=== PATIENT | female | born 1965 | race Caucasian/White ===

== ENCOUNTER 2017-01-29 08:00 | Outpatient (CLI) | payer MEDICAID | END 2017-01-29 08:01 | disposition home or self-care (01) | DX: N39.0 Urinary tract infection, site not specified (principal) ==

== ENCOUNTER 2017-01-29 10:27 | Outpatient (CLI) | payer MEDICAID | END 2017-01-29 10:28 | disposition home or self-care (01) | DX: Z71.9 Counseling, unspecified (principal); N39.0 Urinary tract infection, site not specified ==

== ENCOUNTER 2017-04-20 17:24 | Outpatient (CLI) | payer MEDICAID ==
--- NOTE | 2017-04-21 09:58 | XRAY Report ---
FIVE VIEW LUMBAR SPINE: 04/20/2017 CLINICAL INDICATION: Chronic back pain. FINDINGS: AP, lateral, oblique, and coned down views of the lumbar spine demonstrate moderate degene rative disk and facet disease. There is minimal degenerative anterolisthesis of L3 on L4 by approxima tely 3 mm. No compression fracture is present. No significant scoliosis is noted. IMPRESSION: MODERATE DEGENERATIVE CHANGES. NO EVIDENCE OF FRACTURE. JOB #: [id number] EXT JOB #:[id number]
== END 2017-04-20 17:25 | disposition home or self-care (01) ==
LOC: DI 17:24
PROVIDERS: ATTEND Family Medicine
DX: M47.9 Spondylosis, unspecified (principal); M51.36 Other intervertebral disc degeneration, lumbar region
CPT/HCPCS: 72110

== ENCOUNTER 2017-08-10 15:58 | Emergency (ER) | payer MEDICAID ==
[2017-08-10 16:26] VITALS: BP 156/98
--- NOTE | 2017-08-10 16:30 | ED Physician Documentation ---
PD HPI FEMALE - Stated complaint Stated Complaint: POSS UTI - Chief complaint Chief Complaint: UTI - History obtained from History obtained from: Patient - History of Present Illness Timing - onset: How many weeks ago (1) Timing - duration: Weeks (1) Timing - details: Gradual onset, Still present, Waxing and waning Associated symptoms: Dysuria, Urinary frequency Similar symptoms before: Diagnosis (UTI) Recently seen: Not recently seen - Additional information Additional information: 52-year-old female with chronic UTI and UTIs has developed symptoms about 1 week ago and she was treating this with Azo cranberry tablets and excessive water and her symptoms have progressively gotten worse. She has had some shaking chills over the weekend but she has not had nausea vomiting or flank pain. Review of Systems Constitutional: reports: Chills, Myalgias Eyes: denies: Decreased vision Ears: denies: Ear pain Nose: denies: Congestion Throat: denies: Sore throat Cardiac: denies: Chest pain / pressure, Palpitations Respiratory: denies: Dyspnea, Cough GI: denies: Abdominal Pain, Nausea, Vomiting : reports: Dysuria, Frequency PD PAST MEDICAL HISTORY - Past Medical History Respiratory: Asthma : Other Musculoskeletal: Osteoarthritis, Chronic back pain - Past Surgical History Past Surgical History: Yes Ortho: Knee replacement - Present Medications Home Medications: Ambulatory Orders Medication Instructions Recorded Confirmed Albuterol [Proventil Hfa] 2 puffs INH BID 06/07/13 08/10/17 Omeprazole [Prilosec] 20 mg PO BID 06/07/13 08/10/17 Cephalexin [Keflex] 500 mg PO QID #28 capsule 08/10/17 - Allergies Allergies/Adverse Reactions: Allergies Allergy/AdvReac Type Severity Reaction Status Date / Time diphenhydramine HCl * Allergy Intermediate Pain Verified 08/16/15 17:39 [From Benadryl] Penicillins Allergy seizure Verified 02/22/16 22:16 Sulfa (Sulfonamide Allergy severe Verified 02/22/16 22:16 Antibiotics) disrrhea tramadol HCl * [From Ultram] Allergy unknown Verified 08/16/15 17:39 dexamethasone AdvReac Severe Edema Verified 08/16/15 17:39 acetaminophen [From Percocet] AdvReac Intermediate Nausea Verified 08/16/15 17: 39 oxycodone HCl * AdvReac Intermediate Nausea Verified 08/16/15 17:39 [From Percocet] erythromycin base AdvReac severe Verified 02/22/16 22:19 body pain fluticasone propionate * AdvReac Nausea Verified 08/16/15 17:39 [From Flonase] Most antibiotics Allergy Intermediate varies Uncoded 08/16/15 17:39 Gabepentin AdvReac Dizziness Uncoded 08/16/15 17:39 - Social History Does the pt smoke?: Yes Smoking Status: Current every day smoker Does the pt drink ETOH?: No Does the pt have substance abuse?: No - Immunizations Immunizations are current?: Yes - POLST Patient has POLST: No PD ED PE NORMAL - Vitals Vital signs reviewed: Yes (hypertensive) - General General: No acute distress, Well developed/nourished - HEENT HEENT: Atraumatic, PERRL, EOMI - Neck Neck: Supple, no meningeal sign - Cardiac Cardiac: RRR, No murmur - Respiratory Respiratory: No respiratory distress, Clear bilaterally - Abdomen Abdomen: Soft, Non tender - Back Back: No CVA TTP - Derm Derm: Normal color, Warm and dry, No rash - Extremities Extremities: No deformity, No edema - Neuro Neuro: Alert and oriented X 3, No motor deficit, No sensory deficit, Normal speech Eye Opening: Spontaneous Motor: Obeys Commands Verbal: Oriented GCS Score: 15 - Psych Psych: Normal mood, Normal affect Results - Vitals Vitals: Vital Signs - 24 hr 08/10/17 16:20 Temperature 36.7 C Heart Rate 88 Respiratory 18 Rate Blood Pressure 156/98 H O2 Saturation 98 Oxygen O2 Source Room air - Labs Labs: Laboratory Tests 08/10/17 17:30 Urine Color YELLOW Urine Clarity CLOUDY Urine pH 6.0 Ur Specific [place] 1.020 Urine Protein NEGATIVE Urine Glucose (UA) NEGATIVE Urine Ketones NEGATIVE Urine Occult Blood TRACE-INTA Urine Nitrite POSITIVE H Urine Bilirubin NEGATIVE Urine Urobilinogen 0.2 (NORMAL) Ur Leukocyte Esterase NEGATIVE Urine RBC 0-5 Urine WBC 11-25 H Ur Squamous Epith Cells FEW Squamous Urine Bacteria Many H Urine Casts 6-10 Hyaline Casts Ur Microscopic Review INDICATED Urine Culture Comments INDICATED PD MEDICAL DECISION MAKING - ED course Complexity details: reviewed results, re-evaluated patient, considered differential, d/w patient, d/w family ED course: UTI recurrent will treat with keflex Departure - Departure Disposition: 01 Home, Self Care Clinical Impression: Urinary tract infection Qualifiers: Urinary tract infection type: acute cystitis Hematuria presence: without hematuria Qualified Code(s): N30.00 - Acute cystitis without hematuria Instructions: ED UTI Cystitis Female Follow-Up: Rossy Zapata PA-C [Primary Care Provider] - Prescriptions: Cephalexin [Keflex] 500 mg PO QID #28 capsule Discharge Date/Time: 08/10/17 18:43
[2017-08-10 18:14] LABS: BILIRUBIN,URINE NEGATIVE (NEGATIVE)
[2017-08-10 18:16] LABS: UA w/ MICROSCOPIC CHARGE YES
[2017-08-10 18:25] LABS: UR CULTURE IF IND INDICATED
== END 2017-08-10 18:43 | disposition home or self-care (01) ==
LOC: ED 15:58
DX: N30.00 Acute cystitis without hematuria (principal); Z87.440 Personal history of urinary (tract) infections; J45.909 Unspecified asthma, uncomplicated; M19.90 Unspecified osteoarthritis, unspecified site; F17.200 Nicotine dependence, unspecified, uncomplicated
CPT/HCPCS: 81001; 81003; 87086; 99283

== ENCOUNTER 2017-10-05 20:01 | Emergency (ER) | payer MEDICAID ==
[2017-10-05 20:15] VITALS: BP 137/82
[2017-10-05 20:31] LABS: BILIRUBIN,URINE NEGATIVE (NEGATIVE); GLUCOSE, URINE (UA) NEGATIVE (NEGATIVE); KETONES,URINE (UA) NEGATIVE (NEGATIVE); LEUKOCYTE ESTERASE, URINE NEGATIVE (NEGATIVE); NITRITE,URINE NEGATIVE (NEGATIVE); OCCULT BLOOD,URINE NEGATIVE (NEGATIVE); PROTEIN,URINE NEGATIVE (NEGATIVE); UROBILINOGEN,URINE 0.2 (NORMAL) E.U./dL (NORMAL)
[2017-10-05 20:34] LABS: CLARITY,URINE CLEAR (CLEAR)
[2017-10-05] MEDS ORDERED: NITROFURANTOIN MACRO 100 MG CAPSULE PO STA (20:47)
--- NOTE | 2017-10-05 20:48 | ED Physician Documentation ---
PD HPI FEMALE - Stated complaint Stated Complaint: FEMALE - Chief complaint Chief Complaint: UTI - History obtained from History obtained from: Patient - History of Present Illness Timing - onset: Other (She has frequent UTIs and developed urinary frequency burning and dysuria for the last 3 weeks without flank pain, nausea, or fevers. Her urine is cloudy during the day. She drank a whole bunch of water on the way here so it is better now.) Review of Systems Constitutional: denies: Fever, Chills GI: denies: Abdominal Pain, Nausea, Vomiting : reports: Dysuria, Frequency PD PAST MEDICAL HISTORY - Past Medical History Respiratory: Asthma : Other Musculoskeletal: Osteoarthritis, Chronic back pain - Past Surgical History Past Surgical History: Yes Ortho: Knee replacement - Present Medications Home Medications: Ambulatory Orders Medication Instructions Recorded Confirmed Albuterol [Proventil Hfa] 2 puffs INH BID 06/07/13 08/10/17 Omeprazole [Prilosec] 20 mg PO BID 06/07/13 08/10/17 Cephalexin [Keflex] 500 mg PO QID #28 capsule 08/10/17 Cephalexin [Keflex] 500 mg PO QID #20 capsule 10/05/17 - Allergies Allergies/Adverse Reactions: Allergies Allergy/AdvReac Type Severity Reaction Status Date / Time diphenhydramine HCl * Allergy Intermediate Pain Verified 08/16/15 17:39 [From Benadryl] Penicillins Allergy seizure Verified 02/22/16 22:16 Sulfa (Sulfonamide Allergy severe Verified 02/22/16 22:16 Antibiotics) disrrhea tramadol HCl * [From Ultram] Allergy unknown Verified 08/16/15 17:39 dexamethasone AdvReac Severe Edema Verified 08/16/15 17:39 acetaminophen [From Percocet] AdvReac Intermediate Nausea Verified 08/16/15 17: 39 oxycodone HCl * AdvReac Intermediate Nausea Verified 08/16/15 17:39 [From Percocet] erythromycin base AdvReac severe Verified 02/22/16 22:19 body pain fluticasone propionate * AdvReac Nausea Verified 08/16/15 17:39 [From Flonase] Most antibiotics Allergy Intermediate varies Uncoded 08/16/15 17:39 Gabepentin AdvReac Dizziness Uncoded 08/16/15 17:39 - Social History Does the pt smoke?: Yes Smoking Status: Current every day smoker Does the pt drink ETOH?: No Does the pt have substance abuse?: No - Immunizations Immunizations are current?: Yes - POLST Patient has POLST: No PD ED PE NORMAL - Vitals Vital signs reviewed: Yes - General General: Alert and oriented X 3, No acute distress - Abdomen Abdomen: Soft, Non tender, Non distended - Back Back: No CVA TTP - Neuro Neuro: Alert and oriented X 3, Normal speech Results - Vitals Vitals: Vital Signs - 24 hr 10/05/17 20:10 Temperature 36.6 C Heart Rate 85 Respiratory 18 Rate Blood Pressure 137/82 H O2 Saturation 100 Oxygen O2 Source Room air - Labs Labs: Laboratory Tests 10/05/17 20:20 Urine Color YELLOW Urine Clarity CLEAR Urine pH 6.0 Ur Specific [place] 1.025 Urine Protein NEGATIVE Urine Glucose (UA) NEGATIVE Urine Ketones NEGATIVE Urine Occult Blood NEGATIVE Urine Nitrite NEGATIVE Urine Bilirubin NEGATIVE Urine Urobilinogen 0.2 (NORMAL) Ur Leukocyte Esterase NEGATIVE Ur Microscopic Review NOT INDICATED Urine Culture Comments NOT INDICATED PD MEDICAL DECISION MAKING - ED course ED course: Urine is negative but her symptoms are compelling and she drank a lot of water on the way here which may have diluted out any positive findings. Departure - Departure Disposition: 01 Home, Self Care Clinical Impression: Cystitis Condition: Good Record reviewed to determine appropriate education?: Yes Instructions: ED UTI Cystitis Female Prescriptions: Cephalexin [Keflex] 500 mg PO QID #20 capsule Comments: Call your doctor to arrange a follow-up appointment, make the next available appointment. In the interim, return anytime if worse or if new symptoms develop. Your blood pressure was elevated today on check into the emergency department. This does not mean that you have hypertension, it is a common phenomenon to come to the emergency department and have elevated blood pressure. I recommend that you see your primary care physician within the week to have it rechecked when you are feeling better. Discharge Date/Time: 10/05/17 21:02
[2017-10-05] MEDS ORDERED: cephALEXin 250 MG CAPSULE PO STA (20:56)
== END 2017-10-05 21:02 | disposition home or self-care (01) ==
LOC: ED 20:01
DX: N30.90 Cystitis, unspecified without hematuria (principal); R03.0 Elevated blood-pressure reading, without diagnosis of hypertension; F17.200 Nicotine dependence, unspecified, uncomplicated; Z96.659 Presence of unspecified artificial knee joint
CPT/HCPCS: 81003; 99283; A9270; 81001; 87086

== ENCOUNTER 2018-11-02 14:39 | Outpatient (CLI) | payer MEDICAID ==
--- NOTE | 2018-11-02 15:45 | XRAY Report ---
Reason: BRONCHITIS Procedure Date: 11/02/2018 Accession Number: [id number] / [id number] Procedure: WCP - Chest 2 View X-Ray CPT Code: 70365 FULL RESULT: EXAM: CHEST RADIOGRAPHY EXAM DATE: 11/02/2018 02:51 PM. CLINICAL HISTORY: Bronchitis. COMPARISON: 07/30/2015 10:55 AM. TECHNIQUE: 2 views. FINDINGS: Lungs/Pleura: No focal opacities evident. No pleural effusion. No pneumothorax. Normal volumes. Mediastinum: Heart and mediastinal contours are unremarkable. Other: None. IMPRESSION: Normal 2-view chest radiography. [facility]
== END 2018-11-02 14:40 | disposition home or self-care (01) ==
LOC: DI.WCP 14:39
PROVIDERS: ATTEND Family Medicine
DX: J40 Bronchitis, not specified as acute or chronic (principal)
CPT/HCPCS: 71046

== ENCOUNTER 2018-11-29 12:30 | Outpatient (CLI) | payer MEDICAID | END 2018-11-29 23:59 | disposition home or self-care (01) | LOC: LAB.WCP 12:30 | PROVIDERS: ATTEND Physician Assistant Medical | DX: N39.0 Urinary tract infection, site not specified (principal) | CPT/HCPCS: 87086; 87491; 87591 ==

== ENCOUNTER 2019-03-16 14:21 | Emergency (ER) | payer MEDICAID ==
[2019-03-16 14:47] LABS: BILIRUBIN,URINE NEGATIVE (NEGATIVE); GLUCOSE, URINE (UA) NEGATIVE (NEGATIVE); KETONES,URINE (UA) NEGATIVE (NEGATIVE); LEUKOCYTE ESTERASE, URINE NEGATIVE (NEGATIVE); NITRITE,URINE NEGATIVE (NEGATIVE); OCCULT BLOOD,URINE NEGATIVE (NEGATIVE); PROTEIN,URINE NEGATIVE (NEGATIVE); UROBILINOGEN,URINE 0.2 (NORMAL) E.U./dL (NORMAL)
[2019-03-16 14:49] LABS: CLARITY,URINE CLEAR (CLEAR)
--- NOTE | 2019-03-16 14:49 | ED Physician Documentation ---
PD HPI FEMALE - Stated complaint Stated Complaint: FEMALE - Chief complaint Chief Complaint: UTI - History obtained from History obtained from: Patient - History of Present Illness Timing - onset: Other (5 days of chills, nausea slight dysuria. Fever to 101.5. Similar to prior episodes of somewhat frequent UTIs.) Review of Systems Constitutional: reports: Fever, Chills, Fatigue Nose: denies: Rhinorrhea / runny nose, Congestion Respiratory: denies: Cough GI: reports: Nausea. denies: Vomiting : reports: Dysuria PD PAST MEDICAL HISTORY - Past Medical History Respiratory: Asthma : Other Musculoskeletal: Osteoarthritis, Chronic back pain - Past Surgical History Past Surgical History: Yes Ortho: Knee replacement - Present Medications Home Medications: Ambulatory Orders Medication Instructions Recorded Confirmed Albuterol [Proventil Hfa] 2 puffs INH BID 06/07/13 08/10/17 Omeprazole [Prilosec] 20 mg PO BID 06/07/13 08/10/17 Cephalexin [Keflex] 500 mg PO QID #28 capsule 08/10/17 Cephalexin [Keflex] 500 mg PO QID #20 capsule 10/05/17 - Allergies Allergies/Adverse Reactions: Allergies Allergy/AdvReac Type Severity Reaction Status Date / Time diphenhydramine HCl * Allergy Intermediate Pain Verified 08/16/15 17:39 [From Benadryl] Penicillins Allergy seizure Verified 02/22/16 22:16 Sulfa (Sulfonamide Allergy severe Verified 02/22/16 22:16 Antibiotics) disrrhea tramadol HCl * [From Ultram] Allergy unknown Verified 08/16/15 17:39 dexamethasone AdvReac Severe Edema Verified 08/16/15 17:39 acetaminophen [From Percocet] AdvReac Intermediate Nausea Verified 08/16/15 17:39 oxycodone HCl * AdvReac Intermediate Nausea Verified 08/16/15 17:39 [From Percocet] erythromycin base AdvReac severe Verified 02/22/16 22:19 body pain fluticasone propionate * AdvReac Nausea Verified 08/16/15 17:39 [From Flonase] Most antibiotics Allergy Intermediate varies Uncoded 08/16/15 17:39 Gabepentin AdvReac Dizziness Uncoded 08/16/15 17:39 - Social History Does the pt smoke?: Yes Smoking Status: Current every day smoker Does the pt drink ETOH?: No Does the pt have substance abuse?: No - Immunizations Immunizations are current?: Yes - POLST Patient has POLST: No PD ED PE NORMAL - Vitals Vital signs reviewed: Yes - General General: Alert and oriented X 3, No acute distress - Abdomen Abdomen: Normal bowel sounds, Soft, Non tender - Back Back: No CVA TTP - Derm Derm: No rash - Neuro Neuro: Alert and oriented X 3, Normal speech Results - Vitals Vitals: Vital Signs - 24 hr 03/16/19 14:43 Temperature 36.5 C Heart Rate 89 Respiratory 16 Rate Blood Pressure 142/92 H O2 Saturation 100 Oxygen O2 Source Room air - Labs Labs: Laboratory Tests 03/16/19 03/16/19 03/16/19 14:40 15:00 15:00 WBC 6.4 RBC 4.51 Hgb 14.2 Hct 43.2 MCV 95.8 MCH 31.5 H MCHC 32.9 RDW 12.5 Plt Count 205 MPV 9.1 Neut # (Auto) 3.5 Lymph # (Auto) 2.3 [place] # (Auto) 0.5 Eos # (Auto) 0.1 Baso # (Auto) 0.0 Absolute Nucleated RBC 0.00 Nucleated RBC % 0.0 Sodium 142 Potassium 3.4 L Chloride 105 Carbon Dioxide 26 Anion Gap 11.0 BUN 17 Creatinine 0.7 Estimated GFR (MDRD) 87 L Glucose 94 Calcium 9.4 Total Bilirubin 0.5 AST 19 ALT 13 Alkaline Phosphatase 63 Total Protein 7.1 Albumin 4.2 Globulin 2.9 Albumin/Globulin Ratio 1.4 Lipase 34 Urine Color YELLOW Urine Clarity CLEAR Urine pH 6.0 Ur Specific [place] <=1.005 Urine Protein NEGATIVE Urine Glucose (UA) NEGATIVE Urine Ketones NEGATIVE Urine Occult Blood NEGATIVE Urine Nitrite NEGATIVE Urine Bilirubin NEGATIVE Urine Urobilinogen 0.2 (NORMAL) Ur Leukocyte Esterase NEGATIVE Ur Microscopic Review NOT INDICATED Urine Culture Comments NOT INDICATED PD MEDICAL DECISION MAKING - ED course ED course: 53-year-old woman with frequent UTIs presents with symptoms that she thinks are consistent with same, however her urinalysis, thorough review of systems and lab work demonstrates no other cause for the findings and conservative care and primary care follow-up was advised. Departure - Departure Disposition: 01 Home, Self Care Clinical Impression: Nausea and vomiting Qualifiers: Vomiting type: unspecified Vomiting Intractability: non-intractable Qualified Code(s): R11.2 - Nausea with vomiting, unspecified Condition: Good Health Concerns: nausea, body aches, possible uti Plan of Treatment: Urine done and normal, will culture, labs unremarkable. Care Goals: Rule out UTI Assessment: as above Instructions: ED Nausea Vomiting Comments: We will culture your urine, the results should be done in 48-72 hours. If an antibiotic is necessary we will call you. Return if worse in the meantime, especially if you develop increasing flank pain, fevers, or other new concerns.
[2019-03-16 15:08] LABS: BASOPHILS % (AUTO) 0.5 %; EOSINOPHILS # (AUTO) 0.1 10^3/uL (0.0-0.7); EOSINOPHILS % (AUTO) 1.6 %; HGB - HEMOGLOBIN 14.2 g/dL (12.0-16.0); LYMPHOCYTES # (AUTO) 2.3 10^3/uL (1.5-3.5); LYMPHOCYTES % (AUTO) 35.2 %; MEAN CORPUSCULAR HEMOGLOBIN 31.5 pg (27.0-31.0); MEAN CORPUSCULAR HGB CONC 32.9 g/dL (32.0-36.0); MEAN CORPUSCULAR VOLUME 95.8 fL (81.0-99.0); MEAN PLATELET VOLUME 9.1 fL (7.9-10.8); MONOCYTES # (AUTO) 0.5 10^3/uL (0.0-1.0); MONOCYTES % (AUTO) 8.1 %; NEUTROPHILS # (AUTO) 3.5 10^3/uL (1.5-6.6); NEUTROPHILS % (AUTO) 54.3 %; PLT - PLATELET COUNT 205 10^3/uL (130-450); RED BLOOD COUNT 4.51 10^6/uL (4.20-5.40); RED CELL DISTRIBUTION WIDTH 12.5 % (12.0-15.0); WHITE BLOOD COUNT 6.4 x10^3/uL (4.8-10.8)
[2019-03-16 15:23] LABS: ALBUMIN 4.2 g/dL (3.2-5.5); ALBUMIN/GLOBULIN RATIO 1.4 (1.0-2.2); BILIRUBIN,TOTAL 0.5 mg/dL (0.2-1.0); CALCIUM 9.4 mg/dL (8.5-10.3); CREATININE 0.7 mg/dL (0.4-1.0); TOTAL PROTEIN 7.1 g/dL (6.7-8.2)
[2019-03-16 16:00] VITALS: BP 125/78
== END 2019-03-16 15:42 | disposition home or self-care (01) ==
LOC: ED 14:21
DX: R11.2 Nausea with vomiting, unspecified (principal); F17.200 Nicotine dependence, unspecified, uncomplicated
CPT/HCPCS: 36415; 80053; 81001; 81003; 83690; 85025; 87086; 99282

== ENCOUNTER 2019-05-25 16:47 | Emergency (ER) | payer MEDICAID ==
[2019-05-25 16:53] VITALS: BP 141/87
[2019-05-25] MEDS ORDERED: HYDROcod/ACETAM 5/325 MG TABLET PO STA (17:03)
[2019-05-25] MEDS ORDERED: ONDANSETRON ODT 4 MG TABLET TL STA (17:03)
--- NOTE | 2019-05-25 17:06 | ED Physician Documentation ---
PD HPI BACK PAIN - Stated complaint Stated Complaint: BACK PX - Chief complaint Chief Complaint: Back Pain - History obtained from History obtained from: Patient - History of Present Illness Timing - onset: Today (She developed severe low back pain on the right side over today. She has not taken anything at home for. She is not nauseous. There is a dull ache that is severe and then spasms that are even worse. She has a lidocaine patch on which is not too helpful. No fevers or chills.) Review of Systems Constitutional: reports: Reviewed and negative Cardiac: denies: Chest pain / pressure, Palpitations Respiratory: denies: Dyspnea, Cough GI: denies: Abdominal Pain, Nausea, Vomiting, Diarrhea PD PAST MEDICAL HISTORY - Past Medical History Respiratory: Asthma : Other Musculoskeletal: Osteoarthritis, Chronic back pain - Past Surgical History Past Surgical History: Yes Ortho: Knee replacement - Present Medications Home Medications: Ambulatory Orders Medication Instructions Recorded Confirmed Albuterol [Proventil Hfa] 2 puffs INH BID 06/07/13 08/10/17 Omeprazole [Prilosec] 20 mg PO BID 06/07/13 08/10/17 Cephalexin [Keflex] 500 mg PO QID #28 capsule 08/10/17 Cephalexin [Keflex] 500 mg PO QID #20 capsule 10/05/17 Hydrocodone/Acetaminophen 1 - 2 each PO Q6H PRN #14 tablet 05/25/19 [Hydrocodon-Acetaminophen 5-325] Lidocaine Patch 5% [Lidoderm Patch] 1 patch TOP DAILY PRN #10 patch 05/25/19 Ondansetron Odt [Zofran] 4 mg TL Q6H PRN #20 tablet 05/25/19 RX: Valacyclovir HCl [Valtrex] 1,000 mg PO TID #30 tablet 05/25/19 RX: predniSONE [Deltasone] 20 mg PO [id number] #21 tab 05/25/19 - Allergies Allergies/Adverse Reactions: Allergies Allergy/AdvReac Type Severity Reaction Status Date / Time diphenhydramine HCl * Allergy Intermediate Pain Verified 08/16/15 17:39 [From Benadryl] Penicillins Allergy seizure Verified 02/22/16 22:16 Sulfa (Sulfonamide Allergy severe Verified 02/22/16 22:16 Antibiotics) disrrhea tramadol HCl * [From Ultram] Allergy unknown Verified 08/16/15 17:39 dexamethasone AdvReac Severe Edema Verified 08/16/15 17:39 acetaminophen [From Percocet] AdvReac Intermediate Nausea Verified 08/16/15 17:39 oxycodone HCl * AdvReac Intermediate Nausea Verified 08/16/15 17:39 [From Percocet] erythromycin base AdvReac severe Verified 02/22/16 22:19 body pain fluticasone propionate * AdvReac Nausea Verified 08/16/15 17:39 [From Flonase] Most antibiotics Allergy Intermediate varies Uncoded 08/16/15 17:39 Gabepentin AdvReac Dizziness Uncoded 08/16/15 17:39 - Social History Does the pt smoke?: Yes Smoking Status: Current every day smoker Does the pt drink ETOH?: No Does the pt have substance abuse?: No - Immunizations Immunizations are current?: Yes - POLST Patient has POLST: No PD ED PE NORMAL - Vitals Vital signs reviewed: Yes - General General: Alert and oriented X 3, Other (She appears uncomfortable) - Abdomen Abdomen: Soft, Non tender - Back Back: No CVA TTP, Other (On initial evaluation of her back she has a lidocaine patch in place. Under the lidocaine patch there is some diffuse redness from the tape she says, there is an area on the right flank that is more vesicular and looking like early shingles, she feels like that is from the tape as opposed to shingles on initial evaluation.) - Derm Derm: Normal color, Warm and dry - Extremities Extremities: No edema, No calf tenderness / cord - Neuro Neuro: Alert and oriented X 3, Normal speech Results - Vitals Vitals: Vital Signs - 24 hr 05/25/19 16:51 Temperature 36.3 C L Heart Rate 94 Respiratory 18 Rate Blood Pressure 141/87 H O2 Saturation 99 Oxygen O2 Source Room air - Labs Labs: Laboratory Tests 05/25/19 18:25 Urine Color YELLOW Urine Clarity CLEAR Urine pH 6.5 Ur Specific [place] <=1.005 Urine Protein NEGATIVE Urine Glucose (UA) NEGATIVE Urine Ketones NEGATIVE Urine Occult Blood NEGATIVE Urine Nitrite NEGATIVE Urine Bilirubin NEGATIVE Urine Urobilinogen 0.2 (NORMAL) Ur Leukocyte Esterase NEGATIVE Ur Microscopic Review NOT INDICATED Urine Culture Comments NOT INDICATED - Rads (name of study) CT KUB Radiology: EMP read contemporaneously (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 On initial examination I suspect she had shingles but she was red in the whole area from having a lidocaine patch on. That area was cleaned and on repeat evaluation, shingles was persistent explaining her pain. She has a lot of sensitivities to pain medications and as such she did not really want any narcotics. No gabapentin. Departure - Departure Disposition: Home, Self Care Clinical Impression: Herpes zoster Condition: Good Record reviewed to determine appropriate education?: Yes Instructions: ED Shingles Prescriptions: Hydrocodone/Acetaminophen [Hydrocodon-Acetaminophen 5-325] 1 - 2 each PO Q6H PRN #14 tablet PRN Reason: pain Lidocaine Patch 5% [Lidoderm Patch] 1 patch TOP DAILY PRN #10 patch PRN Reason: shingles pain Ondansetron Odt [Zofran] 4 mg TL Q6H PRN #20 tablet PRN Reason: Nausea / Vomiting RX: predniSONE [Deltasone] 20 mg PO [id number] #21 tab RX: Valacyclovir HCl [Valtrex] 1,000 mg PO TID #30 tablet Comments: You have shingles on your right mid low back. Return for new worsening symptoms. Follow-up with your doctor next week for recheck. Discharge Date/Time: 05/25/19 19:20
--- NOTE | 2019-05-25 17:53 | CT Report ---
Reason: R flank pain Procedure Date: 05/25/2019 Accession Number: [id number] / [id number] Procedure: CT - Abdomen/Pelvis WO CPT Code: FULL RESULT: EXAM: CT ABDOMEN AND PELVIS (CT KUB) EXAM DATE: 05/25/2019 05:28 PM. CLINICAL HISTORY: R flank pain. COMPARISONS: ABDOMEN/PELVIS W/O 05/10/2014 9:34 AM. TECHNIQUE: Routine axial helical CT imaging was performed through the abdomen and pelvis without IV contrast. Reconstructions: Coronal and sagittal. In accordance with CT protocol optimization, one or more of the following dose reduction techniques were utilized for this exam: automated exposure control, adjustment of mA and/or KV based on patient size, or use of iterative reconstructive technique. FINDINGS: Lung Bases: Unremarkable. Right Kidney/Ureter: No stones, hydronephrosis, or hydroureter. No perinephric fat stranding. Left Kidney/Ureter: No stones, hydronephrosis, or hydroureter. No perinephric fat stranding. Other Solid Organs: Noncontrast images of the solid organs are grossly unremarkable. Gallbladder/Bile Ducts: Unremarkable. Peritoneal Cavity: The stomach is mildly distended with food. Unopacified small bowel loops are nondistended. Normal sized appendix with mild luminal hyperdensity near the base without a distinct appendicolith. No periappendiceal fat stranding. Small amount of formed stool throughout the colon. No focal pericolonic fat stranding. No lymphadenopathy, ascites, or pneumoperitoneum. Pelvic Organs: Bladder unremarkable. No stones. Anteverted uterus normal in size. Ovaries are not enlarged. Vasculature: Unremarkable. Other: Moderate degenerative disk disease L4-L5 and L5-S1. Moderate bilateral L3-L4 facet osteoarthritis. Body wall unremarkable. IMPRESSION: No hydronephrosis or urolithiasis. No findings to explain right-sided pain. [facility]
[2019-05-25] MEDS ORDERED: valACYclovir 500 MG TABLET PO STA (18:29)
[2019-05-25] MEDS ORDERED: LIDOCAINE PATCH 5% TOP STA (18:29)
[2019-05-25] MEDS ORDERED: predniSONE 20 MG TABLET PO STA (18:29)
[2019-05-25 18:38] LABS: BILIRUBIN,URINE NEGATIVE (NEGATIVE); GLUCOSE, URINE (UA) NEGATIVE (NEGATIVE); KETONES,URINE (UA) NEGATIVE (NEGATIVE); LEUKOCYTE ESTERASE, URINE NEGATIVE (NEGATIVE); NITRITE,URINE NEGATIVE (NEGATIVE); OCCULT BLOOD,URINE NEGATIVE (NEGATIVE); PH,URINE 6.5 PH (5.0-7.5); PROTEIN,URINE NEGATIVE (NEGATIVE); UROBILINOGEN,URINE 0.2 (NORMAL) E.U./dL (NORMAL)
[2019-05-25 18:57] LABS: CLARITY,URINE CLEAR (CLEAR)
== END 2019-05-25 19:20 | disposition home or self-care (01) ==
LOC: ED 16:47
DX: B02.9 Zoster without complications (principal); M47.816 Spondylosis without myelopathy or radiculopathy, lumbar region; M51.36 Other intervertebral disc degeneration, lumbar region; F17.200 Nicotine dependence, unspecified, uncomplicated
CPT/HCPCS: 74176; 81003; 99284; A9270; J7512; Q0162; 81001; 87086

== ENCOUNTER 2019-05-27 15:39 | Emergency (ER) | payer MEDICAID ==
[2019-05-27 15:47] VITALS: BP 156/87
[2019-05-27] MEDS ORDERED: LIDOCAINE PATCH 5% TOP STA (15:58)
--- NOTE | 2019-05-27 16:03 | ED Physician Documentation ---
History of Present Illness - Stated complaint Stated Complaint: MED CHECK - Chief complaint Chief Complaint: General - History obtained from History obtained from: Patient - History of Present Illness Timing: How many days ago (3) Pain level max: 6 Pain level now: 5 Improved by: lidoderm Worsened by: palpation - Additonal information Additional information: states dx with shingles. Unable to fill lidocaine patches because of insurance issues. here requesting a lidocaine patch. no new issues. 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 : Other HEENT: None Psych: None Musculoskeletal: Osteoarthritis, Chronic back pain Derm: None - Past Surgical History Past Surgical History: Yes Ortho: Knee replacement - Present Medications Home Medications: Ambulatory Orders Medication Instructions Recorded Confirmed Albuterol [Proventil Hfa] 2 puffs INH BID 06/07/13 08/10/17 Omeprazole [Prilosec] 20 mg PO BID 06/07/13 08/10/17 Cephalexin [Keflex] 500 mg PO QID #28 capsule 08/10/17 Cephalexin [Keflex] 500 mg PO QID #20 capsule 10/05/17 Hydrocodone/Acetaminophen 1 - 2 each PO Q6H PRN #14 tablet 05/25/19 [Hydrocodon-Acetaminophen 5-325] Lidocaine Patch 5% [Lidoderm Patch] 1 patch TOP DAILY PRN #10 patch 05/25/19 Ondansetron Odt [Zofran] 4 mg TL Q6H PRN #20 tablet 05/25/19 Valacyclovir HCl [Valtrex] 1,000 mg PO TID #30 tablet 05/25/19 predniSONE [Deltasone] 20 mg PO [id number] #21 tab 05/25/19 Diclofenac Epolamine [Flector] 1 each TD BID PRN #20 adh..patch 05/27/19 - Allergies Allergies/Adverse Reactions: Allergies Allergy/AdvReac Type Severity Reaction Status Date / Time diphenhydramine HCl * Allergy Intermediate Pain Verified 05/27/19 15:47 [From Benadryl] bee venom protein (honey bee) Allergy Unknown Verified 05/27/19 15:47 ciprofloxacin [From Cipro] Allergy Rash Verified 05/27/19 15:47 clindamycin Allergy Unknown Verified 05/27/19 15:47 hydrocodone [From Vicodin] Allergy Unknown Verified 05/27/19 15:47 metronidazole Allergy Unknown Verified 05/27/19 15:47 nabumetone Allergy Rash Verified 05/27/19 15:47 Penicillins Allergy seizure Verified 05/27/19 15:47 prednisone Allergy Unknown Verified 05/27/19 15:47 Sulfa (Sulfonamide Allergy severe Verified 05/27/19 15:47 Antibiotics) disrrhea tramadol HCl * [From Ultram] Allergy unknown Verified 05/27/19 15:47 dexamethasone AdvReac Severe Edema Verified 05/27/19 15:47 acetaminophen [From Percocet] AdvReac Intermediate Nausea Verified 05/27/19 15:47 oxycodone HCl * AdvReac Intermediate Nausea Verified 05/27/19 15:47 [From Percocet] amitriptyline AdvReac fatigue Verified 05/27/19 15:47 erythromycin base AdvReac severe Verified 05/27/19 15:47 body pain esomeprazole [From Nexium] AdvReac Headache Verified 05/27/19 15:47 fluticasone propionate * AdvReac Nausea Verified 05/27/19 15:47 [From Flonase] Most antibiotics Allergy Intermediate varies Uncoded 05/27/19 15:47 Gabepentin AdvReac Dizziness Uncoded 05/27/19 15:47 - Social History Does the pt smoke?: Yes Smoking Status: Current every day smoker Does the pt drink ETOH?: No Does the pt have substance abuse?: No - Immunizations Immunizations are current?: Yes - POLST Patient has POLST: No PD ED PE NORMAL - Vitals Vital signs reviewed: Yes - General General: Alert and oriented X 3, No acute distress - HEENT HEENT: Moist mucous membranes - Back Back: Other (R flank small vesicular rash) - Derm Derm: Warm and dry - Neuro Neuro: Alert and oriented X 3 - Psych Psych: Normal mood, Normal affect Results - Vitals Vitals: Vital Signs - 24 hr 05/27/19 15:44 Temperature 36.7 C Heart Rate 93 Respiratory 20 Rate Blood Pressure 156/87 H O2 Saturation 98 Oxygen O2 Source Room air PD MEDICAL DECISION MAKING - ED course Complexity details: reviewed old records, considered differential, d/w patient ED course: Lidoderm patch applied. We will also try on Flector patches and see if this helps her symptoms. Pt will follow-up with her doctor for further care. Patient counseled regarding signs and symptoms for which I believe and urgent re-evaluation would be necessary. Patient with good understanding of and a greement to plan and is comfortable going home at this time This document was made in part using voice recognition software. While efforts are made to proofread this document, sound alike and grammatical errors may occur. Departure - Departure Disposition: 01 Home, Self Care Clinical Impression: Shingles Qualifiers: Herpes zoster complications: without complications Qualified Code(s): B02.9 - Zoster without complications Condition: Good Instructions: ED Shingles Follow-Up: Elaine Leung PA-C [Primary Care Provider] - Within 1 week Prescriptions: Diclofenac Epolamine [Flector] 1 each TD BID PRN #20 adh..patch PRN Reason: back pain Comments: Return if you worsen. Use the medications as prescribed. See if your insurance covers the flector patches and you can apply this to the area.
== END 2019-05-27 16:13 | disposition home or self-care (01) ==
LOC: ED 15:39
DX: B02.9 Zoster without complications (principal); F17.200 Nicotine dependence, unspecified, uncomplicated
CPT/HCPCS: 99282; 99283; A9270

== ENCOUNTER 2019-06-14 08:00 | Outpatient (CLI) | payer MEDICAID ==
[2019-06-14 18:52] LABS: CALCIUM 9.3 mg/dL (8.5-10.3); CREATININE 0.6 mg/dL (0.4-1.0)
== END 2019-06-14 08:01 | disposition home or self-care (01) ==
LOC: LAB.WCP 08:00
PROVIDERS: ATTEND Physician Assistant Medical
DX: R60.9 Edema, unspecified (principal)
CPT/HCPCS: 36415; 80048

== ENCOUNTER 2019-06-25 15:46 | Emergency (ER) | payer MEDICAID ==
--- NOTE | 2019-06-25 16:22 | ED Physician Documentation ---
History of Present Illness - Stated complaint Stated Complaint: BILAT LEG SWELLING/PX - Chief complaint Chief Complaint: General - History obtained from History obtained from: Patient - History of Present Illness Timing: Other (She was on steroids from 05/26- For shingles. Subsequent to that she developed pedal edema. She has bilateral pedal edema, left greater than right with some pain in the left leg. The edema goes from mid thigh down to the ankles. She saw her physician who did a BMP notable only for elevated BUN, at 25. She was started on triamterene/hydrochlorothiazide without relief o f the pedal edema. 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 : Other HEENT: None Psych: None Musculoskeletal: Osteoarthritis, Chronic back pain Derm: None - Past Surgical History Past Surgical History: Yes Ortho: Knee replacement - Present Medications Home Medications: Ambulatory Orders Medication Instructions Recorded Confirmed Albuterol [Proventil Hfa] 2 puffs INH BID 06/07/13 08/10/17 Omeprazole [Prilosec] 20 mg PO BID 06/07/13 08/10/17 Cephalexin [Keflex] 500 mg PO QID #28 capsule 08/10/17 Cephalexin [Keflex] 500 mg PO QID #20 capsule 10/05/17 Hydrocodone/Acetaminophen 1 - 2 each PO Q6H PRN #14 tablet 05/25/19 [Hydrocodon-Acetaminophen 5-325] Lidocaine Patch 5% [Lidoderm Patch] 1 patch TOP DAILY PRN #10 patch 05/25/19 Ondansetron Odt [Zofran] 4 mg TL Q6H PRN #20 tablet 05/25/19 Valacyclovir HCl [Valtrex] 1,000 mg PO TID #30 tablet 05/25/19 predniSONE [Deltasone] 20 mg PO [id number] #21 tab 05/25/19 Diclofenac Epolamine [Flector] 1 each TD BID PRN #20 adh..patch 05/27/19 Furosemide [Lasix] 20 mg PO DAILY #7 tablet 06/25/19 Potassium Chloride 10 meq PO DAILY #7 capsule.er 06/25/19 - Allergies Allergies/Adverse Reactions: Allergies Allergy/AdvReac Type Severity Reaction Status Date / Time diphenhydramine HCl * Allergy Intermediate Pain Verified 05/27/19 15:47 [From Benadryl] bee venom protein (honey bee) Allergy Unknown Verified 05/27/19 15:47 ciprofloxacin [From Cipro] Allergy Rash Verified 05/27/19 15:47 clindamycin Allergy Unknown Verified 05/27/19 15:47 hydrocodone [From Vicodin] Allergy Unknown Verified 06/25/19 15:50 metronidazole Allergy Unknown Verified 06/25/19 15:50 nabumetone Allergy Rash Verified 06/25/19 15:50 Penicillins Allergy seizure Verified 06/25/19 15:50 prednisone Allergy Unknown Verified 06/25/19 15:50 Sulfa (Sulfonamide Allergy severe Verified 06/25/19 15:50 Antibiotics) disrrhea tramadol HCl * [From Ultram] Allergy unknown Verified 06/25/19 15:50 dexamethasone AdvReac Severe Edema Verified 06/25/19 15:50 acetaminophen [From Percocet] AdvReac Intermediate Nausea Verified 06/25/19 15:50 oxycodone HCl * AdvReac Intermediate Nausea Verified 06/25/19 15:50 [From Percocet] amitriptyline AdvReac fatigue Verified 06/25/19 15:50 erythromycin base AdvReac severe Verified 06/25/19 15:50 body pain esomeprazole [From Nexium] AdvReac Headache Verified 06/25/19 15:50 fluticasone propionate * AdvReac Nausea Verified 06/25/19 15:50 [From Flonase] Most antibiotics Allergy Intermediate varies Uncoded 06/25/19 15:50 cillins Allergy Hives Uncoded 06/25/19 15:50 Gabepentin AdvReac Dizziness Uncoded 06/25/19 15:50 - Social History Does the pt smoke?: Yes Smoking Status: Current every day smoker Does the pt drink ETOH?: No Does the pt have substance abuse?: No - Immunizations Immunizations are current?: Yes - POLST Patient has POLST: No PD ED PE NORMAL - Vitals Vital signs reviewed: Yes - General General: Alert and oriented X 3, No acute distress - Cardiac Cardiac: RRR, No murmur - Respiratory Respiratory: No respiratory distress, Clear bilaterally - Abdomen Abdomen: Normal bowel sounds, Soft, Non tender - Extremities Extremities: Other (Is 2+ pitting pedal edema from the foot up to just above the knee on both sides, left is a little worse than the right but not much.) - Neuro Neuro: Alert and oriented X 3, Normal speech Results - Vitals Vitals: Vital Signs - 24 hr 06/25/19 06/25/19 15:50 18:40 Temperature 36.7 C Heart Rate 79 78 Respiratory 16 18 Rate Blood Pressure 130/56 L 126/85 H O2 Saturation 99 98 Oxygen O2 Source Room air - Labs Labs: Laboratory Tests 06/25/19 06/25/19 18:10 18:10 Sodium 141 Potassium 3.8 Chloride 103 Carbon Dioxide 29 Anion Gap 9.0 BUN 19 Creatinine 0.7 Estimated GFR (MDRD) 87 L Glucose 92 Calcium 9.4 B-Natriuretic Peptide 19 PD MEDICAL DECISION MAKING - ED course ED course: 54-year-old woman with pedal edema. Ultrasound negative for DVT. No evidence of cardiac or renal decompensation. She had already been put on triamterene/hydrochlorothiazide by her PCP. I suspect this was due to the sulfa allergy?. We will give her some Lasix here and watch her for a bit and make sure she does not have an adverse event. Departure - Departure Disposition: 01 Home, Self Care Clinical Impression: Pedal edema Condition: Good Record reviewed to determine appropriate education?: Yes Instructions: ED Edema Legs Bilateral Follow-Up: Elaine Leung PA-C [Primary Care Provider] - Prescriptions: Furosemide [Lasix] 20 mg PO DAILY #7 tablet Potassium Chloride 10 meq PO DAILY #7 capsule.er Comments: There is no evidence of blood clots, your kidneys are working fine and no evidence of heart failure. You can stop the diuretic that JUAN FRANCISCO Leung gave you and substitute the furosemide instead. It takes potassium out of your symptoms so we are prescribing a potassium supplement as well. Return if worse. Follow-up with JUAN FRANCISCO Leung this week. Discharge Date/Time: 06/25/19 18:46
[2019-06-25 18:22] LABS: CALCIUM 9.4 mg/dL (8.5-10.3); CREATININE 0.7 mg/dL (0.4-1.0)
[2019-06-25] MEDS ORDERED: POTASSIUM CHLORIDE 20 MEQ TABLET PO STA (18:25)
[2019-06-25] MEDS ORDERED: FUROSEMIDE 20 MG TABLET PO STA (18:25)
[2019-06-25 18:40] VITALS: BP 126/85
--- NOTE | 2019-06-25 18:56 | Ultrasound Report ---
Reason: leg swelling Procedure Date: 06/25/2019 Accession Number: [id number] / [id number] Procedure: US - Duplex Ext Veins Bilateral CPT Code: FULL RESULT: EXAM: BILATERAL LOWER EXTREMITY VENOUS ULTRASOUND EXAM DATE: 06/25/2019 06:00 PM. CLINICAL HISTORY: Leg swelling. COMPARISON: None. TECHNIQUE: Real-time sonographic vascular imaging was performed by the dowel inspector through the lower extremities utilizing both color-flow and Doppler spectral analysis. Multiple credit representative static images were saved for review. FINDINGS: Right: Common Femoral Vein (CFV): Normal. CFV-GSV Junction: Normal. Profunda Femoral Vein (PFV): Normal. Femoral Vein (FV) Prox: Normal. Femoral Vein (FV) Mid: Normal. Femoral Vein (FV) Dist: Normal. Popliteal Vein: Visualized portions patent. Posterior Tibial Veins: Visualized portions patent Peroneal Veins: Not visualized Left: Common Femoral Vein (CFV): Normal. CFV-GSV Junction: Normal. Profunda Femoral Vein (PFV): Normal. Femoral Vein (FV) Prox: Visualized portions patent. Femoral Vein (FV) Mid: Visualized portions patent. Femoral Vein (FV) Dist: Visualized portions patent. Popliteal Vein: Normal. Posterior Tibial Veins: Visualized portions patent Peroneal Veins: Not visualized Other: Technically suboptimal due to body habitus, swelling, and pain. IMPRESSION: No evidence for deep venous thrombosis in the visualized bilateral lower extremities. RADIA
== END 2019-06-25 18:46 | disposition home or self-care (01) ==
LOC: ED 15:46
DX: R60.0 Localized edema (principal); M79.605 Pain in left leg; J45.909 Unspecified asthma, uncomplicated; F17.200 Nicotine dependence, unspecified, uncomplicated
CPT/HCPCS: 36415; 80048; 83880; 93970; 99284; A9270

== ENCOUNTER 2019-08-07 07:00 | Outpatient (CLI) | payer MEDICAID ==
[2019-08-07 19:06] LABS: CALCIUM 9.2 mg/dL (8.5-10.3); CREATININE 0.7 mg/dL (0.4-1.0)
== END 2019-08-07 23:59 | disposition home or self-care (01) ==
LOC: LAB.WCP 07:00
PROVIDERS: ATTEND Physician Assistant
DX: R60.9 Edema, unspecified (principal)
CPT/HCPCS: 36415; 80048

== ENCOUNTER 2019-08-16 08:00 | Outpatient (CLI) | payer MEDICAID ==
[2019-08-16 13:29] LABS: ALBUMIN 4.6 g/dL (3.2-5.5); ALBUMIN/GLOBULIN RATIO 1.7 (1.0-2.2); BILIRUBIN,TOTAL 0.5 mg/dL (0.2-1.0); CALCIUM 8.9 mg/dL (8.5-10.3); CREATININE 0.7 mg/dL (0.4-1.0); TOTAL PROTEIN 7.3 g/dL (6.7-8.2)
[2019-08-16 13:44] LABS: CREATININE,URINE 157.1 mg/dL; MICROALBUM/CREATININE RATIO,UR 1.9 ug/mg (<30.0); MICROALBUMIN,URINE 0.3 mg/dL (0-300.0)
== END 2019-08-16 23:59 | disposition home or self-care (01) ==
LOC: LAB.WCP 08:00
PROVIDERS: ATTEND Physician Assistant
DX: R60.9 Edema, unspecified (principal); R53.83 Other fatigue
CPT/HCPCS: 36415; 80053; 82043; 82570; 84443

== ENCOUNTER 2019-08-22 08:00 | Outpatient (CLI) | payer MEDICAID ==
[2019-08-22 14:04] LABS: CALCIUM 9.5 mg/dL (8.5-10.3); CREATININE 0.6 mg/dL (0.4-1.0); MAGNESIUM 2.4 mg/dL (1.7-2.8)
== END 2019-08-22 23:59 | disposition home or self-care (01) ==
LOC: LAB.WCP 08:00
PROVIDERS: ATTEND Physician Assistant Medical
DX: R60.9 Edema, unspecified (principal)
CPT/HCPCS: 36415; 80048; 83735

== ENCOUNTER 2019-10-16 11:44 | Emergency (ER) | payer MEDICAID ==
[2019-10-16] MEDS ORDERED: methylPREDNISolone SUCCINATE 40 MG/ML VIAL IVP STA (12:34)
--- NOTE | 2019-10-16 12:36 | ED Physician Documentation ---
PD HPI DYSPNEA - Stated complaint Stated Complaint: SOA,BILAT LEG SWELLING,LT BUTTOCK PX - Chief complaint Chief Complaint: Ext Problem - History obtained from History obtained from: Patient - History of Present Illness Timing - onset: Other (54-year-old woman presents with multiple complaints, she is had ongoing dyspnea for the last week without an increase in her chronic smoker's cough. She has a history of COPD. Some mild orthopnea. She does have exertional dyspnea. She also notes for the last 3 months she has had pedal edema that is persistent and painful in bilateral despite increasing Lasix. She is had an ultrasound ruling out DVT. That also is worse at night. She complains of right buttock pain, chronic back pain, and bilateral shoulder pain for the last 3 weeks. No chest pains.) Review of Systems Constitutional: reports: Myalgias (shoulders/hips). denies: Fever, Chills Ears: denies: Loss of hearing, Ear pain Nose: denies: Rhinorrhea / runny nose, Congestion Cardiac: reports: Pedal edema. denies: Chest pain / pressure, Palpitations, Calf pain Respiratory: reports: Dyspnea, Cough. 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 : Other HEENT: None Psych: None Musculoskeletal: Osteoarthritis, Chronic back pain Derm: None - Past Surgical History Past Surgical History: Yes Ortho: Knee replacement - Present Medications Home Medications: Ambulatory Orders Medication Instructions Recorded Confirmed Albuterol [Proventil Hfa] 2 puffs INH BID 06/07/13 10/16/19 Lidocaine Patch 5% [Lidoderm Patch] 1 patch TOP DAILY PRN #10 patch 05/25/19 10/16/19 Ondansetron Odt [Zofran] 4 mg TL Q6H PRN #20 tablet 05/25/19 10/16/19 Furosemide [Lasix] 20 mg PO DAILY #7 tablet 06/25/19 10/16/19 Potassium Chloride 10 meq PO DAILY #7 capsule.er 06/25/19 10/16/19 Bumetanide [Bumex] 1 mg PO DAILY #10 tablet 10/16/19 Magnesium 500 mg PO DAILY 10/16/19 10/16/19 Naproxen 500 mg PO BID 10/16/19 10/16/19 Triamterene/Hydrochlorothiazid 1 each PO DAILY 10/16/19 10/16/19 [Triamterene-Hctz 37.5-25 mg Cp] predniSONE [Deltasone] 60 mg PO DAILY 5 Days #15 tablet 10/16/19 - Allergies Allergies/Adverse Reactions: Allergies Allergy/AdvReac Type Severity Reaction Status Date / Time diphenhydramine HCl * Allergy Intermediate Pain Verified 05/27/19 15:47 [From Benadryl] bee venom protein (honey bee) Allergy Unknown Verified 05/27/19 15:47 ciprofloxacin [From Cipro] Allergy Rash Verified 05/27/19 15:47 clindamycin Allergy Unknown Verified 05/27/19 15:47 hydrocodone [From Vicodin] Allergy Unknown Verified 10/16/19 11:53 metronidazole Allergy Unknown Verified 10/16/19 11:53 nabumetone Allergy Rash Verified 10/16/19 11:53 Penicillins Allergy seizure Verified 10/16/19 11:53 prednisone Allergy Unknown Verified 10/16/19 11:53 Sulfa (Sulfonamide Allergy severe Verified 10/16/19 11:53 Antibiotics) disrrhea tramadol HCl * [From Ultram] Allergy unknown Verified 10/16/19 11:53 dexamethasone AdvReac Severe Edema Verified 10/16/19 11:53 acetaminophen [From Percocet] AdvReac Intermediate Nausea Verified 10/16/19 11:53 oxycodone HCl * AdvReac Intermediate Nausea Verified 10/16/19 11:53 [From Percocet] amitriptyline AdvReac fatigue Verified 10/16/19 11:53 erythromycin base AdvReac severe Verified 10/16/19 11:53 body pain esomeprazole [From Nexium] AdvReac Headache Verified 10/16/19 11:53 fluticasone propionate * AdvReac Nausea Verified 10/16/19 11:53 [From Flonase] Most antibiotics Allergy Intermediate varies Uncoded 10/16/19 11:53 cillins Allergy Hives Uncoded 10/16/19 11:53 Gabepentin AdvReac Dizziness Uncoded 10/16/19 11:53 - Social History Does the pt smoke?: Yes Smoking Status: Current every day smoker Does the pt drink ETOH?: Yes Does the pt have substance abuse?: No - Immunizations Immunizations are current?: Yes - POLST Patient has POLST: No PD ED PE NORMAL - Vitals Vital signs reviewed: Yes - General General: Alert and oriented X 3, No acute distress - HEENT HEENT: PERRL, EOMI - Neck Neck: Supple, no meningeal sign, No bony TTP - Cardiac Cardiac: RRR, No murmur - Respiratory Respiratory: No respiratory distress, Clear bilaterally - Abdomen Abdomen: Non tender - Back Back: No CVA TTP, No spinal TTP - Derm Derm: Normal color, Warm and dry - Extremities Extremities: Other (Her legs are mildly edematous, she has lots of tender areas to them. Nothing to suggest an infection. Full range of motion's.) - Neuro Neuro: Alert and oriented X 3, hand etcher helper 2-12 intact, No motor deficit, No sensory deficit, Normal speech Results - Vitals Vitals: Vital Signs - 24 hr 10/16/19 10/16/19 10/16/19 11:53 15:12 15:30 Temperature 36.5 C Heart Rate 100 84 87 Respiratory 20 18 17 Rate Blood Pressure 128/80 127/87 H 135/88 H O2 Saturation 99 95 96 Oxygen O2 Source Room air - EKG (time done) 1236 Rate: Rate (enter#) (73) Rhythm: NSR [place]: Normal Intervals: Prolonged OR QRS: Normal Ischemia: Non specific changes. No: ST elevation c/w ischemia, ST depression Computer interpretation: Agree with computer - Labs Labs: Laboratory Tests 10/16/19 10/16/19 10/16/19 12:17 12:17 12:17 WBC 7.0 RBC 4.31 Hgb 13.6 Hct 41.0 MCV 95.1 MCH 31.6 H MCHC 33.2 RDW 12.3 Plt Count 209 MPV 9.1 Neut # (Auto) 4.3 Lymph # (Auto) 2.1 [place] # (Auto) 0.5 Eos # (Auto) 0.1 Baso # (Auto) 0.0 Absolute Nucleated RBC 0.00 Nucleated RBC % 0.0 ESR Sodium 139 Potassium 3.8 Chloride 104 Carbon Dioxide 22 Anion Gap 13.0 BUN 18 Creatinine 0.7 Estimated GFR (MDRD) 87 L Glucose 96 Calcium 9.1 Total Bilirubin 0.6 AST 24 ALT 15 Alkaline Phosphatase 53 Troponin I High Sens 2.9 B-Natriuretic Peptide Total Protein 7.3 Albumin 4.5 Globulin 2.8 Albumin/Globulin Ratio 1.6 Lipase 24 10/16/19 10/16/19 12:17 12:17 WBC RBC Hgb Hct MCV MCH MCHC RDW Plt Count MPV Neut # (Auto) Lymph # (Auto) [place] # (Auto) Eos # (Auto) Baso # (Auto) Absolute Nucleated RBC Nucleated RBC % ESR 7 Sodium Potassium Chloride Carbon Dioxide Anion Gap BUN Creatinine Estimated GFR (MDRD) Glucose Calcium Total Bilirubin AST ALT Alkaline Phosphatase Troponin I High Sens B-Natriuretic Peptide 24 Total Protein Albumin Globulin Albumin/Globulin Ratio Lipase - Rads (name of study) pelvic sono Radiology: EMP read contemporaneously (small fibroid, NAD) PD MEDICAL DECISION MAKING - ED course ED course: 54-year-old woman with complaints of pedal edema and multiple muscular aches. Polymyalgia rheumatica was considered but her sed rate is normal. Pelvic mass was considered but an ultrasound was negative for same. Except for a small fibroid which is inconsequential to the complaints. She did not want pain medication, she does not respond well to it. She does want increase her diuretics which is not unreasonable. She would also like to try some steroids, note listed allergies to steroids. However she says it really she just does not want to take them long-term. Departure - Departure Disposition: 01 Home, Self Care Clinical Impression: Pedal edema, Myalgia Condition: Good Record reviewed to determine appropriate education?: Yes Instructions: ED Acute Pain [facility] Prescriptions: Bumetanide [Bumex] 1 mg PO DAILY #10 tablet predniSONE [Deltasone] 60 mg PO DAILY 5 Days #15 tablet Comments: We are increasing her Lasix, doubling the dose. Continue your potassium supplement. Follow-up with your doctor within the week. Return if worse. Your ultrasound shows a small fibroid, but this is not the cause of your leg swelling. Your kidneys and heart seem to be functioning well.
[2019-10-16 12:42] LABS: BASOPHILS % (AUTO) 0.3 %; EOSINOPHILS # (AUTO) 0.1 10^3/uL (0.0-0.7); HGB - HEMOGLOBIN 13.6 g/dL (12.0-16.0); LYMPHOCYTES # (AUTO) 2.1 10^3/uL (1.5-3.5); MEAN CORPUSCULAR HEMOGLOBIN 31.6 pg (27.0-31.0); MEAN CORPUSCULAR HGB CONC 33.2 g/dL (32.0-36.0); MEAN CORPUSCULAR VOLUME 95.1 fL (81.0-99.0); MEAN PLATELET VOLUME 9.1 fL (7.9-10.8); MONOCYTES # (AUTO) 0.5 10^3/uL (0.0-1.0); MONOCYTES % (AUTO) 7.1 %; NEUTROPHILS # (AUTO) 4.3 10^3/uL (1.5-6.6); NEUTROPHILS % (AUTO) 61.3 %; PLT - PLATELET COUNT 209 10^3/uL (130-450); RED BLOOD COUNT 4.31 10^6/uL (4.20-5.40); RED CELL DISTRIBUTION WIDTH 12.3 % (12.0-15.0)
[2019-10-16 12:52] LABS: ALBUMIN 4.5 g/dL (3.2-5.5); ALBUMIN/GLOBULIN RATIO 1.6 (1.0-2.2); BILIRUBIN,TOTAL 0.6 mg/dL (0.2-1.0); CALCIUM 9.1 mg/dL (8.5-10.3); CREATININE 0.7 mg/dL (0.4-1.0); TOTAL PROTEIN 7.3 g/dL (6.7-8.2)
--- NOTE | 2019-10-16 13:03 | XRAY Report ---
Reason: Chest pain Procedure Date: 10/16/2019 Accession Number: [id number] / [id number] Procedure: XR - Chest 1 View X-Ray CPT Code: 63167 Final Report FULL RESULT: EXAM: CHEST RADIOGRAPHY EXAM DATE: 10/16/2019 12:46 PM. CLINICAL HISTORY: Chest pain. COMPARISON: CHEST 2 VIEW 11/02/2018 2:34 PM. TECHNIQUE: 1 view. FINDINGS: Lungs/Pleura: No focal opacities evident. No pleural effusion. No pneumothorax. Mediastinum: Heart size is upper normal. Aorta is tortuous. Other: None. IMPRESSION: 1. No acute disease in the chest. RADIA
--- NOTE | 2019-10-16 15:30 | Ultrasound Report ---
Reason: leg swelling Procedure Date: 10/16/2019 Accession Number: [id number] / [id number] Procedure: US - Pelvic w/Transvag+Doppler Comp CPT Code: Final Report FULL RESULT: EXAM: PELVIC ULTRASOUND WITH DOPPLERS CLINICAL HISTORY: Leg swelling. COMPARISON: ABDOMEN/PELVIS W/O 05/25/2019 5:19 PM TECHNIQUE: Realtime transabdominal imaging performed to identify the uterus and adnexa and as an overview of other pelvic structures, followed by transvaginal imaging for better assessment of the endometrium and adnexa, with static image documentation. Color flow imaging and Doppler spectral analysis was performed to evaluate blood flow to the ovaries given pelvic pain and clinical concern for ovarian torsion. FINDINGS: Uterus: 8.5 x 3.6 x 4.8 cm, volume 77 cc. Anteverted position. Normal overall size and echotexture. Masses: 1.6 x 1.4 x 1.5 cm right fundal subserosal fibroid. Endometrium: 3 mm. Normal. Cervix: Unremarkable. Right Ovary: 2.0 x 1.0 x 1.4 cm, volume 2 cc. Normal echotexture. Arterial and venous blood flow are present. PSV 6.8 cm/sec. RI 0.72. Adnexa are unremarkable. Left Ovary: 2.6 x 1.6 x 2.3 cm, volume 5.0 cc. Normal echotexture. Arterial and venous blood flow are present. PSV 4.2 cm/sec. RI 0.74. Adnexa are unremarkable. Free Fluid: None. Other: None. IMPRESSION: 1. A 1.6 cm right fundal subserosal fibroid. This is likely unrelated to patient's leg swelling. 2. Arterial and venous blood flow are present to the ovaries bilaterally. RADIA
[2019-10-16 15:40] VITALS: BP 135/88
== END 2019-10-16 15:58 | disposition home or self-care (01) ==
LOC: ED 11:44
DX: R60.0 Localized edema (principal); M79.18 Myalgia, other site; J44.9 Chronic obstructive pulmonary disease, unspecified; F17.200 Nicotine dependence, unspecified, uncomplicated; D25.2 Subserosal leiomyoma of uterus; I44.0 Atrioventricular block, first degree
CPT/HCPCS: 36415; 71045; 76830; 76856; 80053; 83690; 83880; 84484; 85025; 85651; 93005; 93975; 96374; 99284

== ENCOUNTER 2019-11-18 08:00 | Outpatient (CLI) | payer MEDICAID ==
[2019-11-18 12:39] LABS: CREATININE 0.7 mg/dL (0.4-1.0)
== END 2019-11-18 23:59 | disposition home or self-care (01) ==
LOC: LAB.R 08:00
PROVIDERS: ATTEND Physician Assistant Medical
DX: R60.9 Edema, unspecified (principal)
CPT/HCPCS: 82565

== ENCOUNTER 2019-11-18 11:59 | Outpatient (CLI) | payer MEDICAID ==
[2019-11-18] MEDS ORDERED: IOVERSOL 320 100 ML VIAL IVP ONE ×2 (12:07→13:48)
[2019-11-18] MEDS ORDERED: IOVERSOL 320 50 ML VIAL ONE (12:07)
[2019-11-18] MEDS ORDERED: IOVERSOL 320 50 ML VIAL PO ONE (13:48)
--- NOTE | 2019-11-18 17:04 | CT Report ---
Reason: DYSPNEA ON EXERTION Procedure Date: 11/18/2019 Accession Number: [id number] / [id number] Procedure: CT - Abdomen/Pelvis W CPT Code: Final Report FULL RESULT: EXAM: CT ABDOMEN AND PELVIS EXAM DATE: 11/18/2019 01:45 PM. CLINICAL HISTORY: DYSPNEA ON EXERTION, edema. COMPARISONS: ABDOMEN/PELVIS W/O 05/25/2019 5:19 PM. TECHNIQUE: Routine helical CT imaging was performed through the abdomen and pelvis. IV contrast: OPTIRAY 320 90 cc. Enteric contrast: Yes. Reconstructions: Coronal and sagittal. In accordance with CT protocol optimization, one or more of the following dose reduction techniques were utilized for this exam: automated exposure control, adjustment of mA and/or KV based on patient size, or use of iterative reconstructive technique. FINDINGS: Lung Bases: Unremarkable. Liver: Normal. No masses. Gallbladder/Bile Ducts: Unremarkable. Spleen: Normal. Pancreas: Normal. Adrenal Glands: Normal. Kidneys: 1.3 cm cystic-appearing low-density lesion in the right kidney is unchanged compared to the prior exam. No hydronephrosis or stones in either kidney. Peritoneal Cavity/Bowel: Normal. No free fluid, free air or adenopathy. No masses or acute inflammatory process. Appendix is normal. Pelvic Organs: Normal. The bladder and visualized pelvic organs are within normal limits. Vasculature: No aneurysms or other significant abnormality. Bones: No significant abnormality. Other: None. IMPRESSION: 1.3 cm right renal cyst, otherwise normal CT of the abdomen and pelvis. No change compared to 05/25/2019. RADIA
--- NOTE | 2019-11-20 02:39 | CT Report ---
Reason: DYSPNEA ON EXERTION Procedure Date: 11/18/2019 Accession Number: [id number] / [id number] Procedure: CT - ANGIO CHEST W/WO CPT Code: Final Report FULL RESULT: EXAM: CT ANGIOGRAM CHEST EXAM DATE: 11/18/2019 01:45 PM. CLINICAL HISTORY: DYSPNEA ON EXERTION. COMPARISON: None. TECHNIQUE: Routine helical imaging was performed through the chest in the pulmonary arterial phase. IV Contrast: OPTIRAY 320. Reconstructions: Coronal 3-D MIP reconstructions. Sagittal and coronal. In accordance with CT protocol optimization, one or more of the following dose reduction techniques were utilized for this exam: automated exposure control, adjustment of mA and/or KV based on patient size, or use of iterative reconstructive technique. FINDINGS: Pulmonary Arteries: Diagnostic quality: Adequate through the segmental arteries. There are filling defects in the third order pulmonary arteries to the right lower lobe. There are no other filling defects in the pulmonary arterial system. RV/LV is within normal limits. There is no interventricular septal bowing. There is no reflux of contrast material in the IVC. Lungs/Pleura: No consolidation, nodules, or edema. No effusions or pneumothorax. Mediastinum: Normal. No cardiac enlargement or adenopathy. Thoracic Aorta: Unremarkable. Upper Abdomen: Unremarkable. Other: None. IMPRESSION: 1. Third order pulmonary emboli to the right lower lobe. No heart strain. 2. No infiltrates. RADIA The call report notification system was initiated by Dr. Chris Mcguire at 12:07 AM on 11/20/2019. The above call report findings were discussed with on-call Dr. Penn by Dr. Chris Mcguire at 02:37 AM on 11/20/2019.
== END 2019-11-18 12:00 | disposition home or self-care (01) ==
LOC: DI 11:59
PROVIDERS: ATTEND Physician Assistant Medical
DX: I26.99 Other pulmonary embolism without acute cor pulmonale (principal); N28.1 Cyst of kidney, acquired; R60.9 Edema, unspecified
CPT/HCPCS: 71275; 74177; Q9967

== ENCOUNTER 2019-11-20 15:36 | Outpatient (CLI) | payer MEDICAID | END 2019-11-20 15:37 | disposition home or self-care (01) | LOC: LAB 15:36 | PROVIDERS: ATTEND Physician Assistant Medical | DX: I26.99 Other pulmonary embolism without acute cor pulmonale (principal) | CPT/HCPCS: 36415; 81240; 81241; 81599; 85300; 85306; 85307; 85613; 85730; 86147 ==

== ENCOUNTER 2020-04-24 09:34 | Outpatient (CLI) | payer MEDICAID ==
[2020-04-24 11:52] LABS: BASOPHILS % (AUTO) 0.3 %; EOSINOPHILS # (AUTO) 0.1 10^3/uL (0.0-0.7); EOSINOPHILS % (AUTO) 1.5 %; HGB - HEMOGLOBIN 13.7 g/dL (12.0-16.0); LYMPHOCYTES # (AUTO) 1.9 10^3/uL (1.5-3.5); LYMPHOCYTES % (AUTO) 31.4 %; MEAN CORPUSCULAR HEMOGLOBIN 31.2 pg (27.0-31.0); MEAN CORPUSCULAR HGB CONC 32.5 g/dL (32.0-36.0); MEAN CORPUSCULAR VOLUME 95.9 fL (81.0-99.0); MEAN PLATELET VOLUME 9.8 fL (7.9-10.8); MONOCYTES # (AUTO) 0.5 10^3/uL (0.0-1.0); MONOCYTES % (AUTO) 8.3 %; NEUTROPHILS # (AUTO) 3.6 10^3/uL (1.5-6.6); NEUTROPHILS % (AUTO) 58.2 %; PLT - PLATELET COUNT 237 10^3/uL (130-450); RED BLOOD COUNT 4.39 10^6/uL (4.20-5.40); RED CELL DISTRIBUTION WIDTH 12.7 % (12.0-15.0); WHITE BLOOD COUNT 6.2 x10^3/uL (4.8-10.8)
[2020-04-24 12:27] LABS: ALBUMIN 4.4 g/dL (3.2-5.5); ALBUMIN/GLOBULIN RATIO 1.3 (1.0-2.2); BILIRUBIN,TOTAL 0.5 mg/dL (0.2-1.0); CALCIUM 9.6 mg/dL (8.5-10.3); CREATININE 0.7 mg/dL (0.4-1.0); TOTAL PROTEIN 7.7 g/dL (6.7-8.2)
== END 2020-04-24 23:59 | disposition home or self-care (01) ==
LOC: LAB.WCP 09:34
PROVIDERS: ATTEND Physician Assistant Medical
DX: I26.99 Other pulmonary embolism without acute cor pulmonale (principal); R53.83 Other fatigue
CPT/HCPCS: 36415; 80053; 84443; 85025

== ENCOUNTER 2020-05-13 16:27 | Outpatient (CLI) | payer MEDICAID ==
--- NOTE | 2020-05-13 19:14 | Ultrasound Report ---
PROCEDURE: Chest INDICATIONS: BONE SOFT TISSUE AND SKIN NEOPLASM, PULMONARY EMBO TECHNIQUE: Real-time scanning was performed, and a suitable site was marked by the flight radio operator for thoracentesis to be performed by the referring clinician. COMPARISON: CT abdomen and pelvis 11/18/2019. FINDINGS: Palpable abnormality at the left lower back corresponds to a subcutaneous hyperechoic circumscribed n odule without internal vascularity measuring 1.6 x 0.9 x 0.9 cm. IMPRESSION: Left lower back palpable abnormality is most compatible with a benign lipoma. Biopsy should be considered if the lesion becomes painful or clinically increases in size. Reviewed by: Porfirio Tate MD on 05/13/2020 6:13 PM [facility] Approved by: Porfirio Tate MD on 05/13/2020 6:13 PM [facility] Station ID: [id number]
== END 2020-05-13 16:28 | disposition home or self-care (01) ==
LOC: DI 16:27
PROVIDERS: ATTEND Physician Assistant Medical
DX: D49.2 Neoplasm of unspecified behavior of bone, soft tissue, and skin (principal); I26.99 Other pulmonary embolism without acute cor pulmonale
CPT/HCPCS: 76604

== ENCOUNTER 2020-07-25 14:32 | Outpatient (CLI) | payer MEDICAID ==
--- NOTE | 2020-07-25 14:59 | XRAY Report ---
PROCEDURE: Shoulder 2 View RT INDICATIONS: RIGHT SHOULDER IMPINGEMENT SYNDROME TECHNIQUE: 3 views of the shoulder were acquired. COMPARISON: None. FINDINGS: Bones: No fractures or dislocations. No suspicious bony lesions. Visualized ribs appear intact. M oderate periarticular osteophyte formation at the acromioclavicular joint. Mild periarticular osteoph yte formation at the glenohumeral joint. Soft tissues: No suspicious soft tissue calcifications. IMPRESSION: Acromioclavicular and glenohumeral joint osteoarthritis. Reviewed by: Anais Waetrs MD on 07/25/2020 2:58 PM PST Approved by: Anais Waters MD on 07/25/2020 2:58 PM PST Station ID: [id number]
== END 2020-07-25 14:33 | disposition home or self-care (01) ==
LOC: DI.WCP 14:32
PROVIDERS: ATTEND Physician Assistant Medical
DX: M19.011 Primary osteoarthritis, right shoulder (principal)

== ENCOUNTER 2021-04-02 20:50 | Emergency (ER) | payer MEDICAID ==
--- NOTE | 2021-04-02 21:09 | ED Physician Documentation ---
History of Present Illness - Stated complaint Stated Complaint: CP - Chief complaint Chief Complaint: Cardiac - History obtained from History obtained from: Patient - Additonal information Additional information: 55-year-old woman with past medical history of fibromyalgia, pulmonary embolism on Eliquis, presents with dull left-sided chest pain intermittent over the past 2 days, currently a 1 out of 10, worse with breathing and associated with sharp quality. Patient is a smoker and has a chronic nonproductive cough that is nonworsening. Denies hemoptysis. She did have left calf pain a few weeks ago. Pain initially started at 4 PM yesterday while driving in a motorized cart at [facility] and has been on and off since that time. nonexertional. denies diaphoresis, nausea. Of note, she had a negative nuclear stress test 2 years ago as well as echocardiogram with negative bubble study. Patient denies fevers, shortness of breath, nausea, diaphoresis, abdominal pain, leg swelling Review of Systems Ten Systems: 10 systems reviewed and negative Constitutional: denies: Fever, Chills Cardiac: reports: Chest pain / pressure. denies: Palpitations Respiratory: reports: Cough. 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 : Other HEENT: None Psych: None Musculoskeletal: Osteoarthritis, Chronic back pain Derm: None - Past Surgical History Past Surgical History: Yes Ortho: Knee replacement - Present Medications Home Medications: Ambulatory Orders Medication Instructions Recorded Confirmed Albuterol [Proventil Hfa] 2 puffs INH BID 06/07/13 04/02/21 Furosemide [Lasix] 20 mg PO DAILY #7 tablet 06/25/19 04/02/21 Apixaban [Eliquis] 5 mg PO BID 04/02/21 04/02/21 Lidocaine Patch 5% [Lidoderm Patch] 1 patch TOP DAILY PRN 04/02/21 04/02/21 - Allergies Allergies/Adverse Reactions: Allergies Allergy/AdvReac Type Severity Reaction Status Date / Time diphenhydramine HCl * Allergy Intermediate Pain Verified 04/02/21 21:03 [From Benadryl] bee venom protein (honey bee) Allergy Unknown Verified 04/02/21 21:03 ciprofloxacin [From Cipro] Allergy Rash Verified 04/02/21 21:03 clindamycin Allergy Unknown Verified 04/02/21 21:03 hydrocodone [From Vicodin] Allergy Unknown Verified 04/02/21 21:03 metronidazole Allergy Unknown Verified 04/02/21 21:03 nabumetone Allergy Rash Verified 04/02/21 21:03 Penicillins Allergy seizure Verified 04/02/21 21:03 prednisone Allergy Unknown Verified 04/02/21 21:03 Sulfa (Sulfonamide Allergy severe Verified 04/02/21 21:03 Antibiotics) disrrhea tramadol HCl * [From Ultram] Allergy unknown Verified 04/02/21 21:03 dexamethasone AdvReac Severe Edema Verified 04/02/21 21:03 acetaminophen [From Percocet] AdvReac Intermediate Nausea Verified 04/02/21 21:03 oxycodone HCl * AdvReac Intermediate Nausea Verified 04/02/21 21:03 [From Percocet] amitriptyline AdvReac fatigue Verified 04/02/21 21:03 erythromycin base AdvReac severe Verified 04/02/21 21:03 body pain esomeprazole [From Nexium] AdvReac Headache Verified 04/02/21 21:03 fluticasone propionate * AdvReac Nausea Verified 04/02/21 21:03 [From Flonase] Most antibiotics Allergy Intermediate varies Uncoded 04/02/21 21:03 cillins Allergy Hives Uncoded 04/02/21 21:03 Gabepentin AdvReac Dizziness Uncoded 04/02/21 21:03 - Social History Does the pt smoke?: Yes Smoking Status: Current every day smoker Does the pt drink ETOH?: Yes Does the pt have substance abuse?: No - Immunizations Immunizations are current?: Yes - POLST Patient has POLST: No PD ED PE NORMAL - Vitals Vital signs reviewed: Yes - General General: Alert and oriented X 3, No acute distress, Well developed/nourished - HEENT HEENT: Atraumatic, PERRL, EOMI - Neck Neck: Supple, no meningeal sign - Cardiac Cardiac: Other (Borderline tachycardic rate, regular rhythm) - Respiratory Respiratory: No respiratory distress, Clear bilaterally - Abdomen Abdomen: Non tender, Non distended - Derm Derm: Normal color - Extremities Extremities: No deformity - Neuro Neuro: Alert and oriented X 3 - Psych Psych: Normal affect, Other (mood "anxious") Results - Vitals Vitals: Vital Signs - 24 hr 04/02/21 04/02/21 20:50 21:50 Temperature 36.1 C L Heart Rate 108 H 85 Respiratory 16 30 H Rate Blood Pressure 124/97 H 106/43 L O2 Saturation 98 100 Oxygen O2 Source Room air - EKG (time done) 2052 Rate: Rate (enter#) (102) Rhythm: Sinus tachycardia QRS: LVH Ischemia: Other (no STEMI) - Labs Labs: Laboratory Tests 04/02/21 04/02/21 04/02/21 21:06 21:06 21:06 WBC 7.3 RBC 4.90 Hgb 15.5 Hct 46.7 MCV 95.3 MCH 31.6 H MCHC 33.2 RDW 12.1 Plt Count 221 MPV 9.5 Neut # (Auto) 3.6 Lymph # (Auto) 3.0 [place] # (Auto) 0.6 Eos # (Auto) 0.1 Baso # (Auto) 0.0 Absolute Nucleated RBC 0.00 Nucleated RBC % 0.0 D-Dimer 216.3 VBG pH VBG pCO2 VBG pO2 VBG HCO3 VBG Total CO2 VBG O2 Saturation VBG Base Excess Sodium 139 Potassium 3.9 Chloride 104 Carbon Dioxide 25 Anion Gap 10.0 BUN 19 Creatinine 0.7 Estimated GFR (MDRD) 86 L Glucose 110 H Calcium 9.9 Total Bilirubin 0.8 AST 22 ALT 15 Alkaline Phosphatase 76 Troponin I High Sens Total Protein 8.4 H Albumin 5.1 Globulin 3.3 Albumin/Globulin Ratio 1.5 Lipase 25 04/02/21 04/02/21 21:06 21:06 WBC RBC Hgb Hct MCV MCH MCHC RDW Plt Count MPV Neut # (Auto) Lymph # (Auto) [place] # (Auto) Eos # (Auto) Baso # (Auto) Absolute Nucleated RBC Nucleated RBC % D-Dimer VBG pH 7.425 H VBG pCO2 40.0 L VBG pO2 42.0 VBG HCO3 25.7 VBG Total CO2 26.9 VBG O2 Saturation 82.3 H VBG Base Excess 1.3 Sodium Potassium Chloride Carbon Dioxide Anion Gap BUN Creatinine Estimated GFR (MDRD) Glucose Calcium Total Bilirubin AST ALT Alkaline Phosphatase Troponin I High Sens 3.4 Total Protein Albumin Globulin Albumin/Globulin Ratio Lipase PD MEDICAL DECISION MAKING - ED course ED course: 55-year-old woman presented with chest pain over the past couple of days with concern for pulmonary embolism versus cardiac etiology. Will obtain screening lab work and reevaluate. Patient is asymptomatic at present with pain described as a 1 out of 10. declining IV, declining meds. D-dimer and trop negative. d/w patient. HEART score 3 (age, risk factors, ekg). return precautions given. patient will f/u with pmd. Departure - Departure Disposition: 01 Home, Self Care Clinical Impression: Chest pain Condition: Good Instructions: ED Chest Pain NonCardiac Comments: You are seen in the emergency department for evaluation of chest pain. You do not appear to have a blood clot in your lung or your legs, after doing a D- dimer, a highly sensitive blood test. I also have low suspicion that the cause of your chest pain is heart related, but you should come back in if you have any new or worsening symptoms or other concerns. Follow-up with your primary doctor.
[2021-04-02 21:13] LABS: BASOPHILS % (AUTO) 0.4 %; EOSINOPHILS # (AUTO) 0.1 10^3/uL (0.0-0.7); HCT - HEMATOCRIT 46.7 % (37.0-47.0); HGB - HEMOGLOBIN 15.5 g/dL (12.0-16.0); LYMPHOCYTES % (AUTO) 41.5 %; MEAN CORPUSCULAR HEMOGLOBIN 31.6 pg (27.0-31.0); MEAN CORPUSCULAR HGB CONC 33.2 g/dL (32.0-36.0); MEAN CORPUSCULAR VOLUME 95.3 fL (81.0-99.0); MEAN PLATELET VOLUME 9.5 fL (7.9-10.8); MONOCYTES # (AUTO) 0.6 10^3/uL (0.0-1.0); MONOCYTES % (AUTO) 8.1 %; NEUTROPHILS # (AUTO) 3.6 10^3/uL (1.5-6.6); NEUTROPHILS % (AUTO) 48.9 %; PLT - PLATELET COUNT 221 10^3/uL (130-450); RED CELL DISTRIBUTION WIDTH 12.1 % (12.0-15.0); WHITE BLOOD COUNT 7.3 x10^3/uL (4.8-10.8)
[2021-04-02 21:15] LABS: VBG HCO3 25.7 mmol/L (23-28); VBG PH 7.425 (7.31-7.41)
[2021-04-02 21:16] LABS: VBG BASE EXCESS 1.3 mmol/L (-2 - +2); VBG OXYGEN SATURATION 82.3 % (60-80); VBG TOTAL CO2 26.9 mmol/L (24-29)
[2021-04-02 21:27] LABS: ALBUMIN 5.1 g/dL (3.2-5.5); ALBUMIN/GLOBULIN RATIO 1.5 (1.0-2.2); BILIRUBIN,TOTAL 0.8 mg/dL (0.2-1.0); CALCIUM 9.9 mg/dL (8.5-10.3); CREATININE 0.7 mg/dL (0.4-1.0); POTASSIUM 3.9 mmol/L (3.5-5.0); TOTAL PROTEIN 8.4 g/dL (6.7-8.2)
--- NOTE | 2021-04-02 21:44 | XRAY Report ---
PROCEDURE: Chest 1 View X-Ray INDICATIONS: Chest Pain TECHNIQUE: One view of the chest was acquired. COMPARISON: 10/16/2019 FINDINGS: Surgical changes and devices: None. Lungs and pleura: No pleural effusions or pneumothorax. Lungs are clear. Mediastinum: Mediastinal contours appear normal. Heart size is normal. Bones and chest wall: No suspicious bony lesions. Overlying soft tissues appear unremarkable. IMPRESSION: 1. No acute cardiopulmonary disease. 2. Stable compared to the prior study. Reviewed by: Antonella Rowan MD on 04/02/2021 9:42 PM PDT Approved by: Antonella Rowan MD on 04/02/2021 9:42 PM PDT Station ID: [id number]
[2021-04-02 22:21] VITALS: BP 109/55
== END 2021-04-02 22:20 | disposition home or self-care (01) ==
LOC: ED 20:50
DX: R07.89 Other chest pain (principal); R00.0 Tachycardia, unspecified; Z86.711 Personal history of pulmonary embolism; Z79.01 Long term (current) use of anticoagulants; F17.200 Nicotine dependence, unspecified, uncomplicated
CPT/HCPCS: 36415; 80053; 82803; 83690; 84484; 85025; 85379; 93005; 99284

== ENCOUNTER 2021-04-08 08:00 | Outpatient (CLI) | payer MEDICAID ==
[2021-04-08 18:16] LABS: BASOPHILS % (AUTO) 0.4 %; EOSINOPHILS # (AUTO) 0.1 10^3/uL (0.0-0.7); EOSINOPHILS % (AUTO) 1.7 %; HCT - HEMATOCRIT 43.8 % (37.0-47.0); HGB - HEMOGLOBIN 14.1 g/dL (12.0-16.0); LYMPHOCYTES # (AUTO) 1.9 10^3/uL (1.5-3.5); LYMPHOCYTES % (AUTO) 36.4 %; MEAN CORPUSCULAR HEMOGLOBIN 31.4 pg (27.0-31.0); MEAN CORPUSCULAR HGB CONC 32.2 g/dL (32.0-36.0); MEAN CORPUSCULAR VOLUME 97.6 fL (81.0-99.0); MONOCYTES # (AUTO) 0.4 10^3/uL (0.0-1.0); MONOCYTES % (AUTO) 7.6 %; NEUTROPHILS # (AUTO) 2.8 10^3/uL (1.5-6.6); NEUTROPHILS % (AUTO) 53.5 %; PLT - PLATELET COUNT 213 10^3/uL (130-450); RED BLOOD COUNT 4.49 10^6/uL (4.20-5.40); RED CELL DISTRIBUTION WIDTH 12.4 % (12.0-15.0); WHITE BLOOD COUNT 5.3 x10^3/uL (4.8-10.8)
[2021-04-08 18:48] LABS: ALBUMIN 4.3 g/dL (3.2-5.5); ALBUMIN/GLOBULIN RATIO 1.5 (1.0-2.2); ALKALINE PHOSPHATASE 67 IU/L (42-121); ALT ALANINE AMINOTRANSFERASE 14 IU/L (10-60); AST ASPARTATE AMINOTRANSFERASE 21 IU/L (10-42); BILIRUBIN,TOTAL 0.6 mg/dL (0.2-1.0); BUN - BLOOD UREA NITROGEN 13 mg/dL (6-20); CHOLESTEROL 167 mg/dL; CREATININE 0.6 mg/dL (0.4-1.0); GFR - MDRD 103 (>89); HDL CHOLESTEROL 56 mg/dL; LDL CHOLESTEROL,CALCULATED 97 mg/dL; LDL/HDL RATIO 1.7 (<4.4); TOTAL PROTEIN 7.2 g/dL (6.7-8.2); TRIGLYCERIDES 71 mg/dL; VLDL CHOLESTEROL 14 mg/dL
[2021-04-08 18:51] LABS: THYROID STIMULATING HORMONE 1.03 uIU/mL (0.34-5.60)
[2021-04-08 18:54] LABS: CALCIUM 9.5 mg/dL (8.5-10.3); CARBON DIOXIDE - CO2 28 mmol/L (21-32); CHLORIDE 108 mmol/L (101-111); GLUCOSE 98 mg/dL (70-100); POTASSIUM 4.5 mmol/L (3.5-5.0); SODIUM 143 mmol/L (135-145)
== END 2021-04-08 23:59 | disposition home or self-care (01) ==
LOC: LAB.WCP 08:00
PROVIDERS: ATTEND Physician Assistant Medical
DX: Z00.00 Encounter for general adult medical examination without abnormal findings (principal)
CPT/HCPCS: 36415; 80053; 80061; 83721; 84443; 85025

== ENCOUNTER 2021-05-28 08:00 | Outpatient (CLI) | payer MEDICAID | END 2021-05-28 23:59 | disposition home or self-care (01) | LOC: LAB.N 08:00 | PROVIDERS: ATTEND Family Medicine | DX: R05 Cough (principal); Z20.822 Contact with and (suspected) exposure to COVID-19 ==

== ENCOUNTER 2021-09-08 08:00 | Outpatient (CLI) | payer MEDICAID | END 2021-09-08 23:59 | LOC: LAB 08:00 | PROVIDERS: ATTEND Physician Assistant Medical | DX: R05.8 Other specified cough (principal); Z20.822 Contact with and (suspected) exposure to COVID-19 ==

== ENCOUNTER 2021-09-10 19:04 | Outpatient (CLI) | payer MEDICAID ==
--- NOTE | 2021-09-10 20:13 | XRAY Report ---
PROCEDURE: Chest 2 View X-Ray INDICATIONS: COPD, ACUTE EXACERBATION TECHNIQUE: 2 view(s) of the chest. COMPARISON: None. FINDINGS: Surgical changes and devices: None. Lungs and pleura: No pleural effusions or pneumothorax. Lungs are clear. Mediastinum: Mediastinal contours are normal. Heart size is normal. Bones and chest wall: No suspicious bony abnormalities. Soft tissues appear unremarkable. IMPRESSION: No acute cardiopulmonary process demonstrated radiographically. Reviewed by: Olegario Fernandes MD on 09/10/2021 8:12 PM [facility] Approved by: Olegario Fernandes MD on 09/10/2021 8:12 PM [facility] Station ID: [id number]
== END 2021-09-10 23:59 | disposition home or self-care (01) ==
LOC: DI.N 19:04
PROVIDERS: ATTEND Family Medicine
DX: J44.1 Chronic obstructive pulmonary disease with (acute) exacerbation (principal)

== ENCOUNTER 2021-11-03 08:22 | Outpatient (CLI) | payer MEDICAID ==
[2021-11-03 12:03] LABS: BASOPHILS % (AUTO) 0.4 %; EOSINOPHILS # (AUTO) 0.1 10^3/uL (0.0-0.7); EOSINOPHILS % (AUTO) 1.2 %; HCT - HEMATOCRIT 42.8 % (37.0-47.0); HGB - HEMOGLOBIN 14.2 g/dL (12.0-16.0); LYMPHOCYTES # (AUTO) 1.6 10^3/uL (1.5-3.5); LYMPHOCYTES % (AUTO) 27.5 %; MEAN CORPUSCULAR HEMOGLOBIN 31.9 pg (27.0-31.0); MEAN CORPUSCULAR HGB CONC 33.2 g/dL (32.0-36.0); MEAN CORPUSCULAR VOLUME 96.2 fL (81.0-99.0); MEAN PLATELET VOLUME 9.9 fL (7.9-10.8); MONOCYTES # (AUTO) 0.4 10^3/uL (0.0-1.0); MONOCYTES % (AUTO) 7.4 %; NEUTROPHILS # (AUTO) 3.6 10^3/uL (1.5-6.6); NEUTROPHILS % (AUTO) 63.3 %; PLT - PLATELET COUNT 212 10^3/uL (130-450); RED BLOOD COUNT 4.45 10^6/uL (4.20-5.40); RED CELL DISTRIBUTION WIDTH 12.7 % (12.0-15.0); WHITE BLOOD COUNT 5.7 x10^3/uL (4.8-10.8)
[2021-11-03 12:23] LABS: ALBUMIN 4.3 g/dL (3.2-5.5); ALBUMIN/GLOBULIN RATIO 1.3 (1.0-2.2); BILIRUBIN,TOTAL 0.7 mg/dL (0.2-1.0); CALCIUM 9.4 mg/dL (8.5-10.3); CREATININE 0.6 mg/dL (0.4-1.0); TOTAL PROTEIN 7.6 g/dL (6.7-8.2)
[2021-11-03 12:40] LABS: THYROID STIMULATING HORMONE 0.94 uIU/mL (0.34-5.60)
[2021-11-03 12:47] LABS: FERRITIN 42.2 ng/mL (11.0-306.8)
== END 2021-11-03 08:23 | disposition home or self-care (01) ==
LOC: LAB.N 08:22
PROVIDERS: ATTEND Physician Assistant Medical
DX: R63.0 Anorexia (principal); R53.83 Other fatigue
CPT/HCPCS: 36415; 80053; 82306; 82607; 82728; 84443; 85025

== ENCOUNTER 2022-02-01 16:27 | Emergency (ER) | payer MEDICAID ==
[2022-02-01] MEDS ORDERED: SODIUM CHLORIDE 0.9% 1,000 ML IV STA (17:00)
--- NOTE | 2022-02-01 17:05 | ED Physician Documentation ---
History of Present Illness - Stated complaint Stated Complaint: C+/SOA - Chief complaint Chief Complaint: Resp - History obtained from History obtained from: Patient - Additonal information Additional information: Patient is a 56-year-old female with a history of COPD. Presents to the emergency department since she has been sick with COVID for the past 4 to 5 days. She is on Eliquis for history of a PE. She has had intermittent left- sided chest pain. Described as sharp. Not currently have any chest pain. Did not receive her COVID vaccination. Had fevers initially but none now. Has had decreased oral intake. Review of Systems Ears: denies: Ear pain Respiratory: reports: Cough GI: denies: Abdominal Pain : denies: Dysuria, Frequency, Hesitancy Skin: denies: Rash Musculoskeletal: denies: Neck pain, Back pain Neurologic: reports: Generalized weakness. 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 : Other HEENT: None Psych: None Musculoskeletal: Osteoarthritis, Chronic back pain Derm: None - Past Surgical History Past Surgical History: Yes Ortho: Knee replacement - Present Medications Home Medications: Ambulatory Orders Medication Instructions Recorded Confirmed Albuterol [Proventil Hfa] 2 puffs INH BID 06/07/13 04/02/21 Furosemide [Lasix] 20 mg PO DAILY #7 tablet 06/25/19 04/02/21 Apixaban [Eliquis] 5 mg PO BID 04/02/21 04/02/21 Lidocaine Patch 5% [Lidoderm Patch] 1 patch TOP DAILY PRN 04/02/21 04/02/21 Albuterol 2.5 mg INH Q4H PRN #30 neb 09/14/21 Nebulizer Accessories [Proneb 1 each MC QID #1 each 09/14/21 Ultra Filter Set] Nebulizer Accessories [Wing Tip 1 each MC QID #1 each 09/14/21 Tubing] predniSONE [Deltasone] 40 mg PO DAILY 5 Days #10 tablet 09/14/21 - Allergies Allergies/Adverse Reactions: Allergies Allergy/AdvReac Type Severity Reaction Status Date / Time diphenhydramine HCl * Allergy Intermediate Pain Verified 02/01/22 16:36 [From Benadryl] bee venom protein (honey bee) Allergy Unknown Verified 02/01/22 16:36 ciprofloxacin [From Cipro] Allergy Rash Verified 02/01/22 16:36 clindamycin Allergy Unknown Verified 02/01/22 16:36 hydrocodone [From Vicodin] Allergy Unknown Verified 02/01/22 16:36 metronidazole Allergy Unknown Verified 02/01/22 16:36 nabumetone Allergy Rash Verified 02/01/22 16:36 Penicillins Allergy seizure Verified 02/01/22 16:36 prednisone Allergy Unknown Verified 02/01/22 16:36 Sulfa (Sulfonamide Allergy severe Verified 02/01/22 16:36 Antibiotics) disrrhea tramadol HCl * [From Ultram] Allergy unknown Verified 02/01/22 16:36 dexamethasone AdvReac Severe Edema Verified 02/01/22 16:36 acetaminophen [From Percocet] AdvReac Intermediate Nausea Verified 02/01/22 16:36 oxycodone HCl * AdvReac Intermediate Nausea Verified 02/01/22 16:36 [From Percocet] amitriptyline AdvReac fatigue Verified 02/01/22 16:36 erythromycin base AdvReac severe Verified 02/01/22 16:36 body pain esomeprazole [From Nexium] AdvReac Headache Verified 02/01/22 16:36 fluticasone propionate * AdvReac Nausea Verified 02/01/22 16:36 [From Flonase] Most antibiotics Allergy Intermediate varies Uncoded 02/01/22 16:36 cillins Allergy Hives Uncoded 02/01/22 16:36 Gabepentin AdvReac Dizziness Uncoded 02/01/22 16:36 - Social History Does the pt smoke?: Yes Smoking Status: Current every day smoker Does the pt drink ETOH?: Yes Does the pt have substance abuse?: No - Immunizations Immunizations are current?: Yes - POLST Patient has POLST: No PD ED PE NORMAL - Vitals Vital signs reviewed: Yes - General General: Alert and oriented X 3, No acute distress - HEENT HEENT: PERRL, Moist mucous membranes - Neck Neck: Supple, no meningeal sign - Cardiac Cardiac: RRR, Strong equal pulses - Respiratory Respiratory: No respiratory distress, Clear bilaterally - Abdomen Abdomen: Soft, Non tender, Non distended - Derm Derm: Warm and dry - Extremities Extremities: No edema - Neuro Neuro: Alert and oriented X 3 - Psych Psych: Normal mood, Normal affect Results - Vitals Vitals: Vital Signs - 24 hr 02/01/22 02/01/22 16:34 18:28 Temperature 37.1 C Heart Rate 77 70 Respiratory 18 19 Rate Blood Pressure 148/85 H 143/90 H O2 Saturation 97 100 Oxygen O2 Source Room air - EKG (time done) 1718 Rate: Rate (enter#) (68) Rhythm: NSR [place]: Normal Intervals: Normal [place] QRS: Normal Ischemia: Normal ST segments - Labs Labs: Laboratory Tests 02/01/22 02/01/22 02/01/22 17:07 17:07 17:07 WBC 3.2 L RBC 4.50 Hgb 14.0 Hct 43.3 MCV 96.2 MCH 31.1 H MCHC 32.3 RDW 12.3 Plt Count 139 MPV 9.7 Neut # (Auto) 1.2 L Lymph # (Auto) 1.6 [place] # (Auto) 0.4 Eos # (Auto) 0.0 Baso # (Auto) 0.0 Absolute Nucleated RBC 0.00 Nucleated RBC % 0.0 Sodium 142 Potassium 3.6 Chloride 107 Carbon Dioxide 26 Anion Gap 9.0 BUN 12 Creatinine 0.7 Estimated GFR (MDRD) 86 L Glucose 97 Calcium 9.1 Total Bilirubin 0.2 AST 26 ALT 15 Alkaline Phosphatase 53 Troponin I High Sens 4.8 Total Protein 7.2 Albumin 4.1 Globulin 3.1 Albumin/Globulin Ratio 1.3 Lipase 39 - Rads (name of study) Chest x-ray Radiology: Final report received, EMP read contemporaneously, See rad report (Minimal left basilar atelectasis) PD MEDICAL DECISION MAKING - ED course Complexity details: reviewed results, re-evaluated patient, considered differential (No ST elevation CT, no aortic dissection, no PE, no tension pneumothorax, no aortic aneurysm), d/w patient ED course: Patient is well-appearing, nontoxic. Afebrile no hypoxia. No respiratory distress. Unclear etiology of the chest pain, likely inflammation from COVID. No indication of acute coronary syndrome or recurrent PE. Patient counseled regarding signs and symptoms for which I believe and urgent re-evaluation would be necessary. Patient with good understanding of and agreement to plan and is comfortable going home at this time This document was made in part using voice recognition software. While efforts are made to proofread this document, sound alike and grammatical errors may occur. Departure - Departure Disposition: 01 Home, Self Care Clinical Impression: COVID-19 Chest pain Qualifiers: Chest pain type: unspecified Qualified Code(s): R07.9 - Chest pain, unspecified Condition: Good Instructions: ED Chest Pain Atypical Unkn Cause Follow-Up: Elaine Leung PA-C [Primary Care Provider] - Comments: Your chest x-ray, EKG and laboratory testing did not reveal any significant abnormalities today. Please continue your current medications at home. This should continue to improve as your COVID improves. Return if you worsen Discharge Date/Time: 02/01/22 18:46
[2022-02-01 17:13] LABS: BASOPHILS % (AUTO) 0.3 %; EOSINOPHILS % (AUTO) 0.3 %; HCT - HEMATOCRIT 43.3 % (37.0-47.0); LYMPHOCYTES # (AUTO) 1.6 10^3/uL (1.5-3.5); LYMPHOCYTES % (AUTO) 49.2 %; MEAN CORPUSCULAR HEMOGLOBIN 31.1 pg (27.0-31.0); MEAN CORPUSCULAR HGB CONC 32.3 g/dL (32.0-36.0); MEAN CORPUSCULAR VOLUME 96.2 fL (81.0-99.0); MEAN PLATELET VOLUME 9.7 fL (7.9-10.8); MONOCYTES # (AUTO) 0.4 10^3/uL (0.0-1.0); MONOCYTES % (AUTO) 13.3 %; NEUTROPHILS # (AUTO) 1.2 10^3/uL (1.5-6.6); NEUTROPHILS % (AUTO) 36.6 %; PLT - PLATELET COUNT 139 10^3/uL (130-450); RED CELL DISTRIBUTION WIDTH 12.3 % (12.0-15.0); WHITE BLOOD COUNT 3.2 x10^3/uL (4.8-10.8)
[2022-02-01 17:27] LABS: ALBUMIN 4.1 g/dL (3.2-5.5); ALBUMIN/GLOBULIN RATIO 1.3 (1.0-2.2); BILIRUBIN,TOTAL 0.2 mg/dL (0.2-1.0); CALCIUM 9.1 mg/dL (8.5-10.3); CREATININE 0.7 mg/dL (0.4-1.0); POTASSIUM 3.6 mmol/L (3.5-5.0); TOTAL PROTEIN 7.2 g/dL (6.7-8.2)
--- NOTE | 2022-02-01 17:28 | XRAY Report ---
PROCEDURE: Chest 1 View X-Ray INDICATIONS: Chest Pain TECHNIQUE: One view of the chest was acquired. COMPARISON: 09/14/2021 FINDINGS: Surgical changes and devices: None. Lungs and pleura: No pleural effusions or pneumothorax. Minimal bibasilar atelectasis, particularly at the left lung base Mediastinum: Mediastinal contours appear normal. Heart size is normal. Bones and chest wall: No suspicious bony lesions. Overlying soft tissues appear unremarkable. IMPRESSION: Minimal left basilar atelectasis Reviewed by: Jonas Anthony MD on 02/01/2022 4:27 PM [facility] Approved by: Jonas Anthony MD on 02/01/2022 4:27 PM [facility] Station ID: [id number]
[2022-02-01 18:29] VITALS: BP 143/90
== END 2022-02-01 18:46 | disposition home or self-care (01) ==
LOC: ED 16:27
DX: U07.1 COVID-19 (principal); Z28.310 Unvaccinated for COVID-19; F17.200 Nicotine dependence, unspecified, uncomplicated
CPT/HCPCS: 36415; 80053; 83690; 84484; 85025; 93005; 99284

== ENCOUNTER 2022-02-04 12:28 | Emergency (ER) | payer MEDICAID ==
[2022-02-04 12:42] VITALS: BP 127/83
[2022-02-04 13:53] LABS: BILIRUBIN,URINE NEGATIVE (NEGATIVE); GLUCOSE, URINE (UA) NEGATIVE (NEGATIVE); KETONES,URINE (UA) NEGATIVE (NEGATIVE); LEUKOCYTE ESTERASE, URINE NEGATIVE (NEGATIVE); NITRITE,URINE NEGATIVE (NEGATIVE); OCCULT BLOOD,URINE TRACE-INTA (NEGATIVE); PROTEIN,URINE NEGATIVE (NEGATIVE); UROBILINOGEN,URINE 0.2 (NORMAL) E.U./dL (NORMAL)
[2022-02-04 14:00] LABS: CLARITY,URINE CLEAR (CLEAR)
--- NOTE | 2022-02-04 14:30 | ED Physician Documentation ---
History of Present Illness - Stated complaint Stated Complaint: C+/FEMALE - Chief complaint Chief Complaint: General - History obtained from History obtained from: Patient - Additonal information Additional information: 56-year-old woman developed symptomatic COVID 6 days ago. Was seen here for a chest pain episode a few days ago with negative work-up including normal kidney function a few days ago. yesterday was concerned that her urine was too clear from drinking too much water and then backed off on water use a bit. Today developed dysuria consistent with UTI no flank pain or fevers. 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 : Other HEENT: None Psych: None Musculoskeletal: Osteoarthritis, Chronic back pain Derm: None - Past Surgical History Past Surgical History: Yes Ortho: Knee replacement - Present Medications Home Medications: Ambulatory Orders Medication Instructions Recorded Confirmed Albuterol [Proventil Hfa] 2 puffs INH BID 06/07/13 04/02/21 Furosemide [Lasix] 20 mg PO DAILY #7 tablet 06/25/19 04/02/21 Apixaban [Eliquis] 5 mg PO BID 04/02/21 04/02/21 Lidocaine Patch 5% [Lidoderm Patch] 1 patch TOP DAILY PRN 04/02/21 04/02/21 Albuterol 2.5 mg INH Q4H PRN #30 neb 09/14/21 Nebulizer Accessories [Proneb 1 each MC QID #1 each 09/14/21 Ultra Filter Set] Nebulizer Accessories [Wing Tip 1 each MC QID #1 each 09/14/21 Tubing] predniSONE [Deltasone] 40 mg PO DAILY 5 Days #10 tablet 09/14/21 - Allergies Allergies/Adverse Reactions: Allergies Allergy/AdvReac Type Severity Reaction Status Date / Time diphenhydramine HCl * Allergy Intermediate Pain Verified 02/01/22 16:36 [From Benadryl] bee venom protein (honey bee) Allergy Unknown Verified 02/01/22 16:36 ciprofloxacin [From Cipro] Allergy Rash Verified 02/01/22 16:36 clindamycin Allergy Unknown Verified 02/01/22 16:36 hydrocodone [From Vicodin] Allergy Unknown Verified 02/01/22 16:36 metronidazole Allergy Unknown Verified 02/01/22 16:36 nabumetone Allergy Rash Verified 02/01/22 16:36 Penicillins Allergy seizure Verified 02/01/22 16:36 prednisone Allergy Unknown Verified 02/01/22 16:36 Sulfa (Sulfonamide Allergy severe Verified 02/01/22 16:36 Antibiotics) disrrhea tramadol HCl * [From Ultram] Allergy unknown Verified 02/01/22 16:36 dexamethasone AdvReac Severe Edema Verified 02/01/22 16:36 acetaminophen [From Percocet] AdvReac Intermediate Nausea Verified 02/01/22 16:36 oxycodone HCl * AdvReac Intermediate Nausea Verified 02/01/22 16:36 [From Percocet] amitriptyline AdvReac fatigue Verified 02/01/22 16:36 erythromycin base AdvReac severe Verified 02/01/22 16:36 body pain esomeprazole [From Nexium] AdvReac Headache Verified 02/01/22 16:36 fluticasone propionate * AdvReac Nausea Verified 02/01/22 16:36 [From Flonase] Most antibiotics Allergy Intermediate varies Uncoded 02/01/22 16:36 cillins Allergy Hives Uncoded 02/01/22 16:36 Gabepentin AdvReac Dizziness Uncoded 02/01/22 16:36 - Social History Does the pt smoke?: Yes Smoking Status: Current every day smoker Does the pt drink ETOH?: Yes Does the pt have substance abuse?: No - Immunizations Immunizations are current?: Yes - POLST Patient has POLST: No PD ED PE NORMAL - Vitals Vital signs reviewed: Yes - General General: Alert and oriented X 3, No acute distress - Abdomen Abdomen: Normal bowel sounds, Soft, Non tender - Back Back: No CVA TTP, No spinal TTP - Derm Derm: Normal color, Warm and dry - Extremities Extremities: No edema, No calf tenderness / cord Results - Vitals Vitals: Vital Signs - 24 hr 02/04/22 12:39 Temperature 37 C Heart Rate 79 Respiratory 18 Rate Blood Pressure 127/83 H O2 Saturation 98 Oxygen O2 Source Room air - Labs Labs: Laboratory Tests 02/04/22 13:30 Urine Color YELLOW Urine Clarity CLEAR Urine pH 7.0 Ur Specific [place] <=1.005 Urine Protein NEGATIVE Urine Glucose (UA) NEGATIVE Urine Ketones NEGATIVE Urine Occult Blood TRACE-INTA Urine Nitrite NEGATIVE Urine Bilirubin NEGATIVE Urine Urobilinogen 0.2 (NORMAL) Ur Leukocyte Esterase NEGATIVE Ur Microscopic Review NOT INDICATED Urine Culture Comments NOT INDICATED PD MEDICAL DECISION MAKING - ED course ED course: A quick Internet search suggest that dysuria without UTI actually may be a common or at least known symptom of symptomatic COVID. This is likely given her normal UA. Departure - Departure Disposition: 01 Home, Self Care Clinical Impression: COVID-19, Dysuria Condition: Good Record reviewed to determine appropriate education?: Yes Comments: Rest assured that your urinalysis is normal. You can take Azo if you like for the symptoms, but I suspect the symptoms are due to the COVID as discussed. Return for new or worsening symptoms.
== END 2022-02-04 14:35 | disposition home or self-care (01) ==
LOC: ED 12:28
DX: U07.1 COVID-19 (principal); R30.0 Dysuria; F17.200 Nicotine dependence, unspecified, uncomplicated
CPT/HCPCS: 81001; 81003; 87086; 99281; 99283

== ENCOUNTER 2022-05-18 15:56 | Emergency (ER) | payer MEDICAID ==
--- NOTE | 2022-05-18 16:38 | XRAY Report ---
PROCEDURE: Chest 1 View X-Ray INDICATIONS: choked on cracker. SOA. TECHNIQUE: One view of the chest was acquired. COMPARISON: Chest radiographs 02/02/2020 FINDINGS: Surgical changes and devices: None. Lungs and pleura: Subtle opacities are seen at the left lung base. No pleural effusion or pneumothor ax. Mediastinum: Mediastinal contours appear normal. Heart size is normal. Bones and chest wall: No suspicious bony lesions. Overlying soft tissues appear unremarkable. IMPRESSION: Subtle left lower lobe opacities may represent mild aspiration, atelectasis, or pneumonia. Reviewed by: Bob Jackson MD on 05/18/2022 3:37 PM AKHARRISON Approved by: Bob Jackson MD on 05/18/2022 3:37 PM AKHARRISON Station ID: [id number]
--- NOTE | 2022-05-18 17:23 | ED Physician Documentation ---
History of Present Illness - Stated complaint Stated Complaint: CHEST PX, SOA - Chief complaint Chief Complaint: Cardiac - History obtained from History obtained from: Patient - History of Present Illness Pain level max: 3 Pain level now: 2 - Additonal information Additional information: Patient is a 56-year-old female who presents to the emergency department stating that she had a choking episode while eating a Triscuits a few days ago. She states that since that time she has had intermittent tightness in her chest. She states that it improves when she uses her albuterol. No fevers. Occasional chills. No nausea or vomiting. The tightness is in the center of the chest. Nonradiating. No sweating. No numbness or tingling. Review of Systems Constitutional: denies: Fever, Chills Respiratory: reports: Dyspnea, Cough (clear sputum). 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 : Other HEENT: None Psych: None Musculoskeletal: Osteoarthritis, Chronic back pain Derm: None - Past Surgical History Past Surgical History: Yes Ortho: Knee replacement - Present Medications Home Medications: Ambulatory Orders Medication Instructions Recorded Confirmed Albuterol [Proventil Hfa] 2 puffs INH BID 06/07/13 04/02/21 Furosemide [Lasix] 20 mg PO DAILY #7 tablet 06/25/19 04/02/21 Apixaban [Eliquis] 5 mg PO BID 04/02/21 04/02/21 Lidocaine Patch 5% [Lidoderm Patch] 1 patch TOP DAILY PRN 04/02/21 04/02/21 Albuterol 2.5 mg INH Q4H PRN #30 neb 09/14/21 Nebulizer Accessories [Proneb 1 each QID #1 each 09/14/21 Ultra Filter Set] Nebulizer Accessories [Wing Tip 1 each QID #1 each 09/14/21 Tubing] predniSONE [Deltasone] 40 mg PO DAILY 5 Days #10 tablet 09/14/21 - Allergies Allergies/Adverse Reactions: Allergies Allergy/AdvReac Type Severity Reaction Status Date / Time diphenhydramine HCl * Allergy Intermediate Pain Verified 02/01/22 16:36 [From Benadryl] bee venom protein (honey bee) Allergy Unknown Verified 02/01/22 16:36 ciprofloxacin [From Cipro] Allergy Rash Verified 02/01/22 16:36 clindamycin Allergy Unknown Verified 02/01/22 16:36 hydrocodone [From Vicodin] Allergy Unknown Verified 02/01/22 16:36 metronidazole Allergy Unknown Verified 02/01/22 16:36 nabumetone Allergy Rash Verified 02/01/22 16:36 Penicillins Allergy seizure Verified 02/01/22 16:36 prednisone Allergy Unknown Verified 02/01/22 16:36 Sulfa (Sulfonamide Allergy severe Verified 02/01/22 16:36 Antibiotics) disrrhea tramadol HCl * [From Ultram] Allergy unknown Verified 02/01/22 16:36 dexamethasone AdvReac Severe Edema Verified 02/01/22 16:36 acetaminophen [From Percocet] AdvReac Intermediate Nausea Verified 02/01/22 16:36 oxycodone HCl * AdvReac Intermediate Nausea Verified 02/01/22 16:36 [From Percocet] amitriptyline AdvReac fatigue Verified 02/01/22 16:36 erythromycin base AdvReac severe Verified 02/01/22 16:36 body pain esomeprazole [From Nexium] AdvReac Headache Verified 02/01/22 16:36 fluticasone propionate * AdvReac Nausea Verified 02/01/22 16:36 [From Flonase] Most antibiotics Allergy Intermediate varies Uncoded 02/01/22 16:36 cillins Allergy Hives Uncoded 02/01/22 16:36 Gabepentin AdvReac Dizziness Uncoded 02/01/22 16:36 - Social History Does the pt smoke?: Yes Smoking Status: Current every day smoker Does the pt drink ETOH?: Yes Does the pt have substance abuse?: No - Immunizations Immunizations are current?: Yes - POLST Patient has POLST: No PD ED PE NORMAL - Vitals Vital signs reviewed: Yes - General General: Alert and oriented X 3, No acute distress - HEENT HEENT: Moist mucous membranes - Neck Neck: Supple, no meningeal sign - Cardiac Cardiac: RRR - Respiratory Respiratory: No respiratory distress, Clear bilaterally - Abdomen Abdomen: Soft, Non tender, Non distended - Derm Derm: Warm and dry - Extremities Extremities: No edema, No calf tenderness / cord - Neuro Neuro: Alert and oriented X 3 Results - Vitals Vitals: Vital Signs - 24 hr 05/18/22 05/18/22 05/18/22 16:06 16:09 18:42 Temperature 36.3 C L Heart Rate 73 70 66 Respiratory 16 18 Rate Blood Pressure 127/75 123/79 133/93 H O2 Saturation 98 97 98 05/18/22 18:50 Temperature Heart Rate 59 L Respiratory Rate Blood Pressure 133/93 H O2 Saturation 100 Oxygen O2 Source Room air - EKG (time done) 1605 Rate: Rate (enter#) (69) Rhythm: NSR Apison: Normal Intervals: Normal NV QRS: LVH Ischemia: Normal ST segments - Labs Labs: Laboratory Tests 05/18/22 05/18/22 05/18/22 17:38 17:38 17:38 WBC 5.6 RBC 4.45 Hgb 13.9 Hct 42.6 MCV 95.7 MCH 31.2 H MCHC 32.6 RDW 12.8 Plt Count 190 MPV 9.5 Neut # (Auto) 2.9 Lymph # (Auto) 2.1 [place] # (Auto) 0.5 Eos # (Auto) 0.1 Baso # (Auto) 0.0 Absolute Nucleated RBC 0.00 Nucleated RBC % 0.0 Sodium 140 Potassium 3.8 Chloride 105 Carbon Dioxide 28 Anion Gap 7.0 BUN 16 Creatinine 0.6 Estimated GFR (MDRD) 103 Glucose 91 Calcium 9.5 Total Bilirubin 0.5 AST 19 ALT 12 Alkaline Phosphatase 59 Troponin I High Sens 2.8 Total Protein 7.6 Albumin 4.4 Globulin 3.2 Albumin/Globulin Ratio 1.4 Lipase 28 Vitamin B12 FSH Luteinizing Hormone Prolactin 05/18/22 17:38 WBC RBC Hgb Hct MCV MCH MCHC RDW Plt Count MPV Neut # (Auto) Lymph # (Auto) [place] # (Auto) Eos # (Auto) Baso # (Auto) Absolute Nucleated RBC Nucleated RBC % Sodium Potassium Chloride Carbon Dioxide Anion Gap BUN Creatinine Estimated GFR (MDRD) Glucose Calcium Total Bilirubin AST ALT Alkaline Phosphatase Troponin I High Sens Total Protein Albumin Globulin Albumin/Globulin Ratio Lipase Vitamin B12 193 FSH 40.15 Luteinizing Hormone 12.20 Prolactin 3.22 - Rads (name of study) cxr Radiology: Final report received, EMP read contemporaneously, See rad report PD MEDICAL DECISION MAKING - ED course Complexity details: reviewed results, re-evaluated patient, considered differential, d/w patient ED course: Patient is well-appearing, nontoxic. Afebrile. No hypoxia. No respiratory distress. Normal white count. Normal laboratory testing. Chest x-ray reveals a subtle left lower lobe opacity, could represent aspiration versus atelectasis versus pneumonia. Clinically she does not have pneumonia. Possible aspiration pneumonitis. She refuses nebulizer treatment here. We will have her follow-up with her doctor for further care and we will continue supportive care at this time. No indication for antibiotics. Patient counseled regarding signs and symptoms for which I believe and urgent re-evaluation would be necessary. Patient with good understanding of and agreement to plan and is comfortable going home at this time This document was made in part using voice recognition software. While efforts are made to proofread this document, sound alike and grammatical errors may occur. Departure - Departure Disposition: 01 Home, Self Care Clinical Impression: Aspiration pneumonitis Condition: Good Instructions: Aspiration Dysphagia Follow-Up: Elaine Leung PA-C [Primary Care Provider] - Comments: You appear to have an aspiration pneumonitis tonight. Please follow-up with your doctor for further care. I would utilize your inhaler at home to help with any chest discomfort. This should resolve over the next few days. Return if you worsen. Your outpatient blood work was drawn and is running. Discharge Date/Time: 05/18/22 18:50
[2022-05-18] MEDS ORDERED: IPRATROPIUM/ALBUTEROL 3 ML NEB INH STA (17:31)
[2022-05-18 17:51] LABS: BASOPHILS % (AUTO) 0.4 %; EOSINOPHILS # (AUTO) 0.1 10^3/uL (0.0-0.7); EOSINOPHILS % (AUTO) 1.6 %; HCT - HEMATOCRIT 42.6 % (37.0-47.0); HGB - HEMOGLOBIN 13.9 g/dL (12.0-16.0); LYMPHOCYTES # (AUTO) 2.1 10^3/uL (1.5-3.5); LYMPHOCYTES % (AUTO) 37.2 %; MEAN CORPUSCULAR HEMOGLOBIN 31.2 pg (27.0-31.0); MEAN CORPUSCULAR HGB CONC 32.6 g/dL (32.0-36.0); MEAN CORPUSCULAR VOLUME 95.7 fL (81.0-99.0); MEAN PLATELET VOLUME 9.5 fL (7.9-10.8); MONOCYTES # (AUTO) 0.5 10^3/uL (0.0-1.0); MONOCYTES % (AUTO) 8.9 %; NEUTROPHILS # (AUTO) 2.9 10^3/uL (1.5-6.6); NEUTROPHILS % (AUTO) 51.7 %; PLT - PLATELET COUNT 190 10^3/uL (130-450); RED BLOOD COUNT 4.45 10^6/uL (4.20-5.40); RED CELL DISTRIBUTION WIDTH 12.8 % (12.0-15.0); WHITE BLOOD COUNT 5.6 x10^3/uL (4.8-10.8)
[2022-05-18 18:04] LABS: ALBUMIN 4.4 g/dL (3.2-5.5); ALBUMIN/GLOBULIN RATIO 1.4 (1.0-2.2); BILIRUBIN,TOTAL 0.5 mg/dL (0.2-1.0); CALCIUM 9.5 mg/dL (8.5-10.3); CREATININE 0.6 mg/dL (0.4-1.0); POTASSIUM 3.8 mmol/L (3.5-5.0); TOTAL PROTEIN 7.6 g/dL (6.7-8.2)
[2022-05-18 18:43] VITALS: BP 133/93
[2022-05-18 19:03] LABS: PROLACTIN 3.22 ng/mL
[2022-05-18 19:25] LABS: FOLLICLE STIMULATING HORMONE 40.15 mIU/mL
[2022-05-18 19:26] LABS: LUTEINIZING HORMONE 12.2 mIU/mL
== END 2022-05-18 18:50 | disposition home or self-care (01) ==
LOC: ED 15:56
DX: J69.0 Pneumonitis due to inhalation of food and vomit (principal); F17.200 Nicotine dependence, unspecified, uncomplicated
CPT/HCPCS: 36415; 80053; 82607; 82670; 83001; 83002; 83690; 84146; 84484; 85025; 93005; 94664; 99284

== ENCOUNTER 2022-05-18 17:38 | Outpatient (CLI) | payer MEDICAID | END 2022-05-18 17:39 | disposition home or self-care (01) | LOC: LAB 17:38 | PROVIDERS: ATTEND Physician Assistant Medical | DX: N95.1 Menopausal and female climacteric states (principal); R23.2 Flushing; R53.83 Other fatigue | CPT/HCPCS: 84144 ==

== ENCOUNTER 2022-06-05 10:57 | Outpatient (CLI) | payer MEDICAID ==
--- NOTE | 2022-06-05 14:47 | Ultrasound Report ---
PROCEDURE: Ankle Brachial Index INDICATIONS: EDEMA TECHNIQUE: Ankle-brachial indices were obtained bilaterally and recorded. COMPARISONS: None. FINDINGS: Right ankle brachial index (TEQUILA): 1.1 incidental note of triphasic posterior tibial and biphasic anne salis pedis artery waveforms. Left ankle brachial index (TEQUILA): 1.1 incidental note of biphasic posterior tibial and dorsalis pedis artery waveforms. Healing potential: Ankle pressures >55 mm Hg in non-diabetics and >80 mm Hg in diabetics are likely to achieve primary h ealing of ischemic foot ulcers. Toe pressures >30 mm Hg are likely to achieve primary healing of ischemic foot ulcers, toe or transme tatarsal amputations. IMPRESSION: 1. Normal ABIs bilaterally. 2. Biphasic waveform morphology suggesting decreased arterial compliance and early peripheral vascula r disease. Reviewed by: Antonella Rowan MD on 06/05/2022 2:46 PM PDT Approved by: Antonella Rowan MD on 06/05/2022 2:46 PM PDT Station ID: [id number]
--- NOTE | 2022-06-05 15:14 | Ultrasound Report ---
PROCEDURE: Duplex Ext Veins Right, ultrasound INDICATIONS: EDEMA TECHNIQUE: Real-time imaging, as well as color and pulse Doppler interrogation, were performed of the lower extr emity deep veins from the inguinal ligament to the popliteal fossa. COMPARISON: None. FINDINGS: The deep veins are normally compressible, and free of intraluminal thrombus. Color and pu lse Doppler demonstrate normal phasic intraluminal flow. There is normal augmentation response to di stal compression maneuver. IMPRESSION: No evidence of deep venous thrombosis, right lower extremity Reviewed by: Jonas Anthony MD on 06/05/2022 2:13 PM AKHARRISON Approved by: Jonas Anthony MD on 06/05/2022 2:13 PM AKHARRISON Station ID: [id number]
== END 2022-06-05 10:58 | disposition home or self-care (01) ==
LOC: DI 10:57
PROVIDERS: ATTEND Physician Assistant Medical
DX: R60.0 Localized edema (principal)
CPT/HCPCS: 93922

== ENCOUNTER 2022-06-05 11:46 | Emergency (ER) | payer MEDICAID ==
[2022-06-05 12:09] VITALS: BP 125/70
--- NOTE | 2022-06-05 12:47 | XRAY Report ---
PROCEDURE: Ankle 3 View LT INDICATIONS: pain, swelling TECHNIQUE: 3 views of the ankle were acquired. COMPARISON: None FINDINGS: Bones: No fractures or dislocations. Ankle mortise is normally aligned. No suspicious bony lesions . Soft tissues: Ankle edema is present. Achilles tendon appears normal. IMPRESSION: Prominent ankle edema. No visualized acute fracture or dislocation. However, occult inju ry cannot be excluded. Recommend short interval imaging follow-up in 7-10 days as clinically indicate d for additional evaluation. Reviewed by: Caryn Mills MD on 06/05/2022 12:45 PM PDT Approved by: Caryn Mills MD on 06/05/2022 12:45 PM PDT Station ID: [id number]
--- NOTE | 2022-06-05 13:08 | ED Physician Documentation ---
History of Present Illness - Stated complaint Stated Complaint: L ANKLE PX - Chief complaint Chief Complaint: Ext Problem - History obtained from History obtained from: Patient - Additonal information Additional information: The patient comes to the emergency department chief complaint of pain above her left ankle. She states that she did not have any trauma. About 4 days ago, she began to notice some mild pain in the area and is just gotten progressively worse. Feels swollen. She now has a bit of pain up in her posterior left leg. She denies any swelling outside of that immediate area. No foot pain or swelling. She states area feels warm. Patient already takes Eliquis for the last 3 years after having a PE. She just had ultrasounds done of the right leg but did not have the left done. She denies chest pain or shortness of breath. No other complaints at this time. Review of Systems Ten Systems: 10 systems reviewed and negative Constitutional: reports: Reviewed and negative Eyes: reports: Reviewed and negative Ears: reports: Reviewed and negative Nose: reports: Reviewed and negative Throat: reports: Reviewed and negative Cardiac: reports: Reviewed and negative Respiratory: reports: Reviewed and negative GI: reports: Reviewed and negative : reports: Reviewed and negative Skin: reports: Reviewed and negative Musculoskeletal: reports: Extremity pain, Extremity swelling Neurologic: reports: Reviewed and negative Psychiatric: reports: Reviewed and negative Endocrine: reports: Reviewed and negative Immunocompromised: reports: Reviewed and negative PD PAST MEDICAL HISTORY - Past Medical History Cardiovascular: None Respiratory: Asthma, COPD Neuro: None Endocrine/Autoimmune: None GI: None 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 : Other HEENT: None Psych: None Musculoskeletal: Osteoarthritis, Chronic back pain Derm: None - Past Surgical History Past Surgical History: Yes Ortho: Knee replacement - Present Medications Home Medications: Ambulatory Orders Medication Instructions Recorded Confirmed Albuterol [Proventil Hfa] 2 puffs INH BID 06/07/13 04/02/21 Furosemide [Lasix] 20 mg PO DAILY #7 tablet 06/25/19 04/02/21 Apixaban [Eliquis] 5 mg PO BID 04/02/21 04/02/21 Lidocaine Patch 5% [Lidoderm Patch] 1 patch TOP DAILY PRN 04/02/21 04/02/21 Albuterol 2.5 mg INH Q4H PRN #30 neb 09/14/21 Nebulizer Accessories [Proneb 1 each MC QID #1 each 09/14/21 Ultra Filter Set] Nebulizer Accessories [Wing Tip 1 each MC QID #1 each 09/14/21 Tubing] predniSONE [Deltasone] 40 mg PO DAILY 5 Days #10 tablet 09/14/21 cephALEXin [Keflex] 500 mg PO Q6H #28 cap 06/05/22 - Allergies Allergies/Adverse Reactions: Allergies Allergy/AdvReac Type Severity Reaction Status Date / Time diphenhydramine HCl * Allergy Intermediate Pain Verified 02/01/22 16:36 [From Benadryl] bee venom protein (honey bee) Allergy Unknown Verified 02/01/22 16:36 ciprofloxacin [From Cipro] Allergy Rash Verified 02/01/22 16:36 clindamycin Allergy Unknown Verified 02/01/22 16:36 hydrocodone [From Vicodin] Allergy Unknown Verified 06/05/22 12:05 metronidazole Allergy Unknown Verified 06/05/22 12:05 nabumetone Allergy Rash Verified 06/05/22 12:05 Penicillins Allergy seizure Verified 06/05/22 12:05 prednisone Allergy Unknown Verified 06/05/22 12:05 Sulfa (Sulfonamide Allergy severe Verified 06/05/22 12:05 Antibiotics) disrrhea tramadol HCl * [From Ultram] Allergy unknown Verified 06/05/22 12:05 dexamethasone AdvReac Severe Edema Verified 06/05/22 12:05 acetaminophen [From Percocet] AdvReac Intermediate Nausea Verified 06/05/22 12:05 oxycodone HCl * AdvReac Intermediate Nausea Verified 06/05/22 12:05 [From Percocet] amitriptyline AdvReac fatigue Verified 06/05/22 12:05 erythromycin base AdvReac severe Verified 06/05/22 12:05 body pain esomeprazole [From Nexium] AdvReac Headache Verified 06/05/22 12:05 fluticasone propionate * AdvReac Nausea Verified 06/05/22 12:05 [From Flonase] Most antibiotics Allergy Intermediate varies Uncoded 06/05/22 12:05 cillins Allergy Hives Uncoded 06/05/22 12:05 Gabepentin AdvReac Dizziness Uncoded 06/05/22 12:05 - Social History Does the pt smoke?: Yes Smoking Status: Current every day smoker Does the pt drink ETOH?: Yes Does the pt have substance abuse?: No - Immunizations Immunizations are current?: Yes - POLST Patient has POLST: No PD ED PE NORMAL - Vitals Vital signs reviewed: Yes - General General: Alert and oriented X 3, No acute distress, Well developed/nourished - HEENT HEENT: Atraumatic, PERRL, EOMI, Moist mucous membranes - Neck Neck: Supple, no meningeal sign - Respiratory Respiratory: No respiratory distress - Derm Derm: Warm and dry, No rash, Other (Slight erythema with mild edema left lower leg laterally, just proximal to the ankle. No erythematous streaking.) - Extremities Extremities: No deformity, No calf tenderness / cord, Other (Mild edema, as above, left lower extremity.) - Neuro Neuro: Alert and oriented X 3, program manager 2-12 intact, No motor deficit, No sensory deficit, Normal speech - Psych Psych: Normal mood, Normal affect Results - Vitals Vitals: Vital Signs - 24 hr 06/05/22 12:05 Temperature 36.7 C Heart Rate 75 Respiratory 18 Rate Blood Pressure 125/70 O2 Saturation 99 Oxygen O2 Source Room air - Rads (name of study) Left ankle x-ray series Radiology: Final report received, EMP read indepedently, See rad report (Negative) Left lower extremity duplex ultrasound Radiology: Final report received, See rad report (Negative for DVT; hyperemia left distal lateral lower leg.) PD MEDICAL DECISION MAKING - ED course Complexity details: reviewed results, re-evaluated patient, considered differential, d/w patient ED course: The patient was worked up with left ankle x-ray, which was unremarkable. I did also order a duplex ultrasound of her left lower extremity. Departure - Departure Disposition: 01 Home, Self Care Clinical Impression: Cellulitis Qualifiers: Site of cellulitis: extremity Site of cellulitis of extremity: lower extremity Laterality: left Qualified Code(s): L03.116 - Cellulitis of left lower limb Condition: Stable Instructions: ED Infec Skin Cellulitis Prescriptions: cephALEXin [Keflex] 500 mg PO Q6H #28 cap Comments: Your x-ray and ultrasound are negative, though increased vascularity in the area of the pain and swelling was noted on the ultrasound. As we discussed, the skin is somewhat pink there and it is possible that you do have some degree of infection in the tissue. We will treat presumptively for this with antibiotics. We will use the Keflex since this is the only antibiotic that you have not had some sort of reaction to, although a number of the reactions are not actually allergies on your list. As such, if you need a different antibiotic, it is possible for you to take another antibiotic, perhaps with some tolerance of adverse symptoms or with symptom mitigation. You may apply cold compresses to the area to help with some of the discomfort. You may also take Tylenol if needed. Please follow-up with your primary doctor as needed. Your prescription has been electronically transmitted to [facility] in [place]. Discharge Date/Time: 06/05/22 14:18
[2022-06-05] MEDS ORDERED: cephALEXin 250 MG CAPSULE PO STA (13:55)
--- NOTE | 2022-06-05 14:13 | Ultrasound Report ---
PROCEDURE: Duplex Ext Veins Left INDICATIONS: pain/swelling TECHNIQUE: Real-time imaging, as well as color and pulse Doppler interrogation, were performed of the lower extr emity deep veins from the inguinal ligament to the popliteal fossa. COMPARISON: None. FINDINGS: The deep veins are normally compressible, and free of intraluminal thrombus. Color and pu lse Doppler demonstrate normal phasic intraluminal flow. There is normal augmentation response to di stal compression maneuver. No sonographic abnormalities identified over the area of patient concern over the lateral aspect of t he left lower leg. There is mild subcutaneous soft tissue edema and hyperemia. No fluid collection se en. IMPRESSION: Negative for deep venous thrombosis of the left lower extremity. Left lower leg soft tis jennifer swelling and hyperemia without focal fluid collection. Reviewed by: Jeff Puga MD on 06/05/2022 2:12 PM PDT Approved by: Jeff Puga MD on 06/05/2022 2:12 PM PDT Station ID: [id number]
== END 2022-06-05 14:18 | disposition home or self-care (01) ==
LOC: ED 11:46
DX: L03.116 Cellulitis of left lower limb (principal); F17.200 Nicotine dependence, unspecified, uncomplicated
CPT/HCPCS: 73610; 93922; 93971; 99282; 99284; A9270

== ENCOUNTER 2022-06-12 21:58 | Emergency (ER) | payer MEDICAID ==
--- NOTE | 2022-06-12 23:00 | ED Physician Documentation ---
History of Present Illness - Stated complaint Stated Complaint: LEG PX - Chief complaint Chief Complaint: Ext Problem - History obtained from History obtained from: Patient - History of Present Illness Timing: How many weeks ago (two) Pain level now: 6 Improved by: rest Worsened by: ambulation, weight-bearing - Additonal information Additional information: c/o atraumatic LLE pain, predominantly lateral aspect of left ankle. Symptoms began approximately 11 days ago, gradual onset but steadily progressing in intensity of pain and area affected. Has not had this before. She was T+R from this ED one week ago for this problem, no concerning nor diagnostic findings on left ankle xrays as well as LLE US. She was prescribed keflex for suspected cellulitis and she says there was mild improvement in symptoms, but the again worsening over past 2-3 days. She was evaluated by PMD 06/10 (two days ago) for this and was prescribed doxycycline, zofran, and vicodin. She says she was also given a shot of ceftriaxone. She presents to ED at this time due to increasing pain of the LLE, again predominantly lateral aspect of left ankle. Patient is on Eliquis. Review of Systems Constitutional: reports: Reviewed and negative Cardiac: reports: Pedal edema. denies: Chest pain / pressure Respiratory: denies: Dyspnea, Cough Musculoskeletal: reports: Extremity pain, Joint pain, Extremity swelling, Joint swelling, Pain with weight bearing Neurologic: denies: Focal weakness, Numbness PD PAST MEDICAL HISTORY - Past Medical History Cardiovascular: None Respiratory: Asthma, COPD Neuro: None Endocrine/Autoimmune: None GI: None [employer]MENT: None : Other HEENT: None Psych: None Musculoskeletal: Osteoarthritis, Chronic back pain Derm: None - Past Surgical History Past Surgical History: Yes Ortho: Knee replacement - Present Medications Home Medications: Ambulatory Orders Medication Instructions Recorded Confirmed Albuterol [Proventil Hfa] 2 puffs INH BID 06/07/13 04/02/21 Furosemide [Lasix] 20 mg PO DAILY #7 tablet 06/25/19 04/02/21 Apixaban [Eliquis] 5 mg PO BID 04/02/21 04/02/21 Lidocaine Patch 5% [Lidoderm Patch] 1 patch TOP DAILY PRN 04/02/21 04/02/21 Albuterol 2.5 mg INH Q4H PRN #30 neb 09/14/21 Nebulizer Accessories [Proneb 1 each MC QID #1 each 09/14/21 Ultra Filter Set] Nebulizer Accessories [Wing Tip 1 each QID #1 each 09/14/21 Tubing] predniSONE [Deltasone] 40 mg PO DAILY 5 Days #10 tablet 09/14/21 cephALEXin [Keflex] 500 mg PO Q6H #28 cap 06/05/22 Colchicine [Colcrys] 0.6 mg PO DAILY #7 tablet 06/12/22 cephALEXin [Keflex] 500 mg PO Q6H #28 cap 06/12/22 - Allergies Allergies/Adverse Reactions: Allergies Allergy/AdvReac Type Severity Reaction Status Date / Time diphenhydramine HCl * Allergy Intermediate Pain Verified 06/12/22 22:09 [From Benadryl] bee venom protein (honey bee) Allergy Unknown Verified 06/12/22 22:09 ciprofloxacin [From Cipro] Allergy Rash Verified 06/12/22 22:09 clindamycin Allergy Unknown Verified 06/12/22 22:09 hydrocodone [From Vicodin] Allergy Unknown Verified 06/12/22 22:09 metronidazole Allergy Unknown Verified 06/12/22 22:09 nabumetone Allergy Rash Verified 06/12/22 22:09 Penicillins Allergy seizure Verified 06/12/22 22:09 prednisone Allergy Unknown Verified 06/12/22 22:09 Sulfa (Sulfonamide Allergy severe Verified 06/12/22 22:09 Antibiotics) disrrhea tramadol HCl * [From Ultram] Allergy unknown Verified 06/12/22 22:09 dexamethasone AdvReac Severe Edema Verified 06/12/22 22:09 acetaminophen [From Percocet] AdvReac Intermediate Nausea Verified 06/12/22 22:09 oxycodone HCl * AdvReac Intermediate Nausea Verified 06/12/22 22:09 [From Percocet] amitriptyline AdvReac fatigue Verified 06/12/22 22:09 erythromycin base AdvReac severe Verified 06/12/22 22:09 body pain esomeprazole [From Nexium] AdvReac Headache Verified 06/12/22 22:09 fluticasone propionate * AdvReac Nausea Verified 06/12/22 22:09 [From Flonase] Most antibiotics Allergy Intermediate varies Uncoded 06/12/22 22:09 cillins Allergy Hives Uncoded 06/12/22 22:09 Gabepentin AdvReac Dizziness Uncoded 06/12/22 22:09 - Social History Does the pt smoke?: Yes Smoking Status: Current every day smoker Does the pt drink ETOH?: Yes Does the pt have substance abuse?: No - Immunizations Immunizations are current?: Yes - POLST Patient has POLST: No PD ED PE NORMAL - Vitals Vital signs reviewed: Yes - General General: Alert and oriented X 3, No acute distress, Well developed/nourished PD ED PE EXPANDED - Extremities Extremities: Pedal edema L, Pedal Pulses Present AGNIESZKA LE visual: 1 - swelling (swelling, tenderness, poorly marginated erythema, increased warm th to touch (compared to other ankle). FROM of the ankle), tenderness Results - Vitals Vitals: Oxygen O2 Source Room air PD MEDICAL DECISION MAKING - ED course Complexity details: reviewed old records, considered differential, d/w patient ED course: Presents with ongoing LLE pain, swelling, erythema with symptoms and exam findings most pronounced at lateral aspect of left ankle. She says she has a few doses of keflex remaining, and is only two days into the course of doxycycline. Emergent testing not undertaken at this time, as results are unlikely to yield a diagnosis. Ongoing infectious process such as cellulitis is possible although increasingly unlikely with keflex and doxycycline (although she has just recently started the doxycycline). She says she had some improvement with keflex and is requesting another course of this medication. We discussed that it would be preferable to try a different antibiotic (in combination with the doxycycline), but she has an unusually extensive list of allergies which includes majority of antibiotics. It is reasonable to extend the course of cephalexin and thus rx for this is provided. Would more strongly entertain gout at this point. We discussed this diagnosis and she is started on colchicine, with dose in ED and rx provided. Departure - Departure Disposition: 01 Home, Self Care Clinical Impression: Ankle pain, left Qualifiers: Chronicity: acute Qualified Code(s): M25.572 - Pain in left ankle and joints of left foot Condition: Good Instructions: ED Arthritis Gout Follow-Up: Elaine Leung PA-C [Primary Care Provider] - Prescriptions: Colchicine [Colcrys] 0.6 mg PO DAILY #7 tablet cephALEXin [Keflex] 500 mg PO Q6H #28 cap Comments: The diagnosis of gout is strictly provisional; this is not a definitive diagnosis at this time, but your symptoms and exam have enough elements consist with gout to suggest that gout is a reasonable possibility and thus you are being given colchicine and prescription for this medication. Colchicine helps most cases of gout flare, sometimes within 1-2 days. A prescription for this medication has been electronically sent to [facility] in [place]. As we discussed an infectious cause such as cellulitis is possible, although this is also not a confident diagnosis. For example, cellulitis typically has a sharp margin, a clear demarcation from red/inflamed skin and normal skin (which I am not seeing on your exam). As this is still a reasonably possible cause of your symptoms, continuing on an antibiotic is advisable. You are indicating that the doxycycline is causing side effects and, due to your extensive allergies, there are no other antibiotics that are indicated for cellulitis to which you don't have a listed allergy. For this reason, I am prescribing another week of cephalexin and this prescription is also being submitted to [facility] in [place]. Regarding the colchicine, you can stop taking this medication if your symptoms resolve (do not have to take a full week of colchicine). Also should be discontinued if you develop abdominal cramping, diarrhea. Discharge Date/Time: 06/12/22 23:59
[2022-06-12] MEDS ORDERED: COLCHICINE 0.6 MG TABLET PO STA (23:40)
[2022-06-12] MEDS ORDERED: cephALEXin 250 MG CAPSULE PO STA (23:42)
[2022-06-13] VITALS: BP 133/74
== END 2022-06-12 23:59 | disposition home or self-care (01) ==
LOC: ED 21:58
DX: M25.572 Pain in left ankle and joints of left foot (principal); F17.200 Nicotine dependence, unspecified, uncomplicated
CPT/HCPCS: 99282; 99283; A9270

== ENCOUNTER 2022-06-13 00:12 | Outpatient (CLI) | payer MEDICAID ==
[2022-06-13 00:40] LABS: BASOPHILS % (AUTO) 0.3 %; EOSINOPHILS # (AUTO) 0.2 10^3/uL (0.0-0.7); EOSINOPHILS % (AUTO) 2.4 %; HGB - HEMOGLOBIN 13.6 g/dL (12.0-16.0); LYMPHOCYTES # (AUTO) 2.7 10^3/uL (1.5-3.5); LYMPHOCYTES % (AUTO) 36.7 %; MEAN CORPUSCULAR HGB CONC 33.2 g/dL (32.0-36.0); MEAN CORPUSCULAR VOLUME 96.5 fL (81.0-99.0); MEAN PLATELET VOLUME 9.2 fL (7.9-10.8); MONOCYTES # (AUTO) 0.6 10^3/uL (0.0-1.0); MONOCYTES % (AUTO) 8.2 %; NEUTROPHILS # (AUTO) 3.9 10^3/uL (1.5-6.6); NEUTROPHILS % (AUTO) 52.1 %; PLT - PLATELET COUNT 219 10^3/uL (130-450); RED BLOOD COUNT 4.25 10^6/uL (4.20-5.40); RED CELL DISTRIBUTION WIDTH 12.6 % (12.0-15.0); WHITE BLOOD COUNT 7.5 x10^3/uL (4.8-10.8)
[2022-06-13 00:54] LABS: URIC ACID 5.7 mg/dL (2.6-7.2)
[2022-06-13 00:57] LABS: CRP - C-REACTIVE PROTEIN < 1.0 mg/dL (0-1.0)
== END 2022-06-13 00:13 | disposition home or self-care (01) ==
LOC: LAB 00:12
PROVIDERS: ATTEND Physician Assistant Medical
DX: L03.116 Cellulitis of left lower limb (principal)
CPT/HCPCS: 36415; 84550; 85025; 85651; 86140

== ENCOUNTER 2022-10-27 13:56 | Outpatient (CLI) | payer MEDICAID ==
[2022-10-27 17:59] LABS: BASOPHILS % (AUTO) 0.3 %; EOSINOPHILS # (AUTO) 0.1 10^3/uL (0.0-0.7); EOSINOPHILS % (AUTO) 0.9 %; HCT - HEMATOCRIT 43.7 % (37.0-47.0); LYMPHOCYTES # (AUTO) 2.5 10^3/uL (1.5-3.5); LYMPHOCYTES % (AUTO) 37.5 %; MEAN CORPUSCULAR HEMOGLOBIN 30.7 pg (27.0-31.0); MEAN CORPUSCULAR VOLUME 95.8 fL (81.0-99.0); MEAN PLATELET VOLUME 9.8 fL (7.9-10.8); MONOCYTES # (AUTO) 0.4 10^3/uL (0.0-1.0); NEUTROPHILS # (AUTO) 3.7 10^3/uL (1.5-6.6); NEUTROPHILS % (AUTO) 55.2 %; PLT - PLATELET COUNT 231 10^3/uL (130-450); RED BLOOD COUNT 4.56 10^6/uL (4.20-5.40); RED CELL DISTRIBUTION WIDTH 12.6 % (12.0-15.0); WHITE BLOOD COUNT 6.7 x10^3/uL (4.8-10.8)
[2022-10-27 18:37] LABS: URIC ACID 5.4 mg/dL (2.6-7.2)
[2022-10-27 18:39] LABS: CRP - C-REACTIVE PROTEIN < 1.0 mg/dL (0-1.0)
[2022-10-28 21:07] LABS: ANTI-DNA (DS) AB QN <1 IU/mL (0-9); CENTROMERE B ANTIBODIES 4.9 AI (0.0-0.9); CHROMATIN ANTIBODIES <0.2 AI (0.0-0.9); JO-1 AB <0.2 AI (0.0-0.9); RIBOSOMAL P ANTIBODIES <0.2 AI (0.0-0.9); RNP ANTIBODIES <0.2 AI (0.0-0.9); SCLERODERMA-70 ANTIBODIES <0.2 AI (0.0-0.9); SJOGREN'S ANTI-SS-A <0.2 AI (0.0-0.9); SJOGREN'S ANTI-SS-B <0.2 AI (0.0-0.9); SMITH ANTIBODIES <0.2 AI (0.0-0.9); SMITH/RNP ANTIBODIES <0.2 AI (0.0-0.9)
== END 2022-10-27 13:57 | disposition home or self-care (01) ==
LOC: LAB.N 13:56
PROVIDERS: ATTEND Physician Assistant Medical
DX: L03.116 Cellulitis of left lower limb (principal)
CPT/HCPCS: 36415; 84550; 85025; 85651; 86140; 86225; 86235; 86430

== ENCOUNTER 2022-12-25 08:07 | Outpatient (CLI) | payer MEDICAID ==
[2022-12-25 11:51] LABS: BUN - BLOOD UREA NITROGEN 23 mg/dL (6-20); CALCIUM 9.2 mg/dL (8.5-10.3); CARBON DIOXIDE - CO2 27 mmol/L (21-32); CHLORIDE 110 mmol/L (101-111); CHOL/HDL RATIO 2.4 (<4.4); CHOLESTEROL 171 mg/dL; CREATININE 0.6 mg/dL (0.4-1.0); GFR - MDRD 102 (>89); GLUCOSE 107 mg/dL (70-100); HDL CHOLESTEROL 70 mg/dL; POTASSIUM 4.1 mmol/L (3.5-5.0); SODIUM 143 mmol/L (135-145); TRIGLYCERIDES 37 mg/dL
[2022-12-25 12:13] LABS: THYROID STIMULATING HORMONE 1.26 uIU/mL (0.34-5.60)
== END 2022-12-25 08:08 | disposition home or self-care (01) ==
LOC: LAB.N 08:07
PROVIDERS: ATTEND Physician Assistant Medical
DX: Z00.00 Encounter for general adult medical examination without abnormal findings (principal)
CPT/HCPCS: 36415; 80048; 80061; 83721; 84443

== ENCOUNTER 2024-01-15 08:00 | Outpatient (CLI) | payer MEDICAID ==
[2024-01-15 15:21] LABS: BILIRUBIN,URINE NEGATIVE (NEGATIVE); GLUCOSE, URINE (UA) NEGATIVE (NEGATIVE); KETONES,URINE (UA) NEGATIVE (NEGATIVE); LEUKOCYTE ESTERASE, URINE NEGATIVE (NEGATIVE); NITRITE,URINE NEGATIVE (NEGATIVE); OCCULT BLOOD,URINE LARGE (NEGATIVE); PROTEIN,URINE NEGATIVE (NEGATIVE); UROBILINOGEN,URINE 0.2 (NORMAL) E.U./dL (NORMAL)
[2024-01-15 15:24] LABS: CLARITY,URINE CLEAR (CLEAR)
[2024-01-15 15:37] LABS: BACTERIA,URINE Rare /HPF (None Seen); SQUAMOUS EPITHELIAL CELL,UR FEW Squamous (<= Few); WBC,URINE 0-3 /HPF (0-5)
== END 2024-01-15 23:59 | disposition home or self-care (01) ==
LOC: LAB.N 08:00
PROVIDERS: ATTEND Registered Nurse
DX: R31.9 Hematuria, unspecified (principal); R82.90 Unspecified abnormal findings in urine
CPT/HCPCS: 81001; 87086

== ENCOUNTER 2024-01-18 11:30 | Outpatient (CLI) | payer MEDICAID ==
[2024-01-18 17:46] LABS: BASOPHILS % (AUTO) 0.2 %; EOSINOPHILS % (AUTO) 0.2 %; HCT - HEMATOCRIT 41.8 % (37.0-47.0); HGB - HEMOGLOBIN 13.6 g/dL (12.0-16.0); LYMPHOCYTES # (AUTO) 0.4 10^3/uL (1.5-3.5); LYMPHOCYTES % (AUTO) 8.9 %; MEAN CORPUSCULAR HEMOGLOBIN 31.3 pg (27.0-31.0); MEAN CORPUSCULAR HGB CONC 32.5 g/dL (32.0-36.0); MEAN CORPUSCULAR VOLUME 96.3 fL (81.0-99.0); MEAN PLATELET VOLUME 10.1 fL (7.9-10.8); MONOCYTES # (AUTO) 0.6 10^3/uL (0.0-1.0); NEUTROPHILS # (AUTO) 3.2 10^3/uL (1.5-6.6); NEUTROPHILS % (AUTO) 76.5 %; PLT - PLATELET COUNT 188 10^3/uL (130-450); RED BLOOD COUNT 4.34 10^6/uL (4.20-5.40); RED CELL DISTRIBUTION WIDTH 12.8 % (12.0-15.0); WHITE BLOOD COUNT 4.1 x10^3/uL (4.8-10.8)
[2024-01-18 18:05] LABS: ALBUMIN 4.5 g/dL (3.2-5.5); ALBUMIN/GLOBULIN RATIO 1.5 (1.0-2.2); BILIRUBIN,TOTAL 0.6 mg/dL (0.2-1.0); CALCIUM 9.8 mg/dL (8.5-10.3); CREATININE 0.6 mg/dL (0.6-1.3); POTASSIUM 3.7 mmol/L (3.5-4.5); TOTAL PROTEIN 7.5 g/dL (6.4-8.9)
== END 2024-01-18 11:45 | disposition home or self-care (01) ==
LOC: LAB.N 11:30
PROVIDERS: ATTEND Family Medicine
DX: R11.0 Nausea (principal); R30.0 Dysuria
CPT/HCPCS: 36415; 80053; 83690; 85025; 87086

== ENCOUNTER 2024-01-29 10:21 | Outpatient (CLI) | payer MEDICAID ==
[2024-01-29 20:09] LABS: BASOPHILS # (AUTO) 0.1 10^3/uL (0.0-0.1); EOSINOPHILS # (AUTO) 0.2 10^3/uL (0.0-0.7); EOSINOPHILS % (AUTO) 3.4 %; HCT - HEMATOCRIT 40.1 % (37.0-47.0); HGB - HEMOGLOBIN 12.4 g/dL (12.0-16.0); LYMPHOCYTES # (AUTO) 1.6 10^3/uL (1.5-3.5); LYMPHOCYTES % (AUTO) 31.1 %; MEAN CORPUSCULAR HEMOGLOBIN 30.4 pg (27.0-31.0); MEAN CORPUSCULAR HGB CONC 30.9 g/dL (32.0-36.0); MEAN CORPUSCULAR VOLUME 98.3 fL (81.0-99.0); MONOCYTES # (AUTO) 0.4 10^3/uL (0.0-1.0); MONOCYTES % (AUTO) 8.7 %; NEUTROPHILS # (AUTO) 2.8 10^3/uL (1.5-6.6); PLT - PLATELET COUNT 218 10^3/uL (130-450); RED BLOOD COUNT 4.08 10^6/uL (4.20-5.40); RED CELL DISTRIBUTION WIDTH 12.8 % (12.0-15.0); WHITE BLOOD COUNT 5.1 x10^3/uL (4.8-10.8)
[2024-01-29 20:12] LABS: BILIRUBIN,URINE NEGATIVE (NEGATIVE); GLUCOSE, URINE (UA) NEGATIVE (NEGATIVE); KETONES,URINE (UA) NEGATIVE (NEGATIVE); LEUKOCYTE ESTERASE, URINE NEGATIVE (NEGATIVE); NITRITE,URINE NEGATIVE (NEGATIVE); OCCULT BLOOD,URINE TRACE-INTA (NEGATIVE); PROTEIN,URINE TRACE mg/dL (NEGATIVE); UROBILINOGEN,URINE 0.2 (NORMAL) E.U./dL (NORMAL)
[2024-01-29 20:17] LABS: CLARITY,URINE CLEAR (CLEAR)
[2024-01-29 20:24] LABS: ALBUMIN 4.1 g/dL (3.2-5.5); ALBUMIN/GLOBULIN RATIO 1.4 (1.0-2.2); ALKALINE PHOSPHATASE 58 IU/L (42-121); ALT ALANINE AMINOTRANSFERASE 9 IU/L (10-60); AST ASPARTATE AMINOTRANSFERASE 15 IU/L (10-42); BILIRUBIN,TOTAL 0.4 mg/dL (0.2-1.0); BUN - BLOOD UREA NITROGEN 11 mg/dL (6-20); CALCIUM 9.3 mg/dL (8.5-10.3); CARBON DIOXIDE - CO2 29 mmol/L (21-32); CHLORIDE 107 mmol/L (101-111); CHOL/HDL RATIO 3.1 (<4.4); CHOLESTEROL 110 mg/dL; CREATININE 0.6 mg/dL (0.6-1.3); GFR - MDRD 102 (>89); GLUCOSE 105 mg/dL (74-104); HDL CHOLESTEROL 35 mg/dL; LDL CHOLESTEROL,CALCULATED 62 mg/dL; LDL/HDL RATIO 1.8 (<4.4); POTASSIUM 3.9 mmol/L (3.5-4.5); SODIUM 139 mmol/L (135-145); TRIGLYCERIDES 65 mg/dL (48-352); VLDL CHOLESTEROL 13 mg/dL
[2024-01-29 20:35] LABS: BACTERIA,URINE None Seen /HPF (None Seen); RBC,URINE 0-5 /HPF (0-5); SQUAMOUS EPITHELIAL CELL,UR FEW Squamous (<= Few); WBC,URINE 0-3 /HPF (0-5)
[2024-01-29 20:38] LABS: THYROID STIMULATING HORMONE 1.28 uIU/mL (0.34-5.60)
== END 2024-01-29 10:22 | disposition home or self-care (01) ==
LOC: LAB.N 10:21
PROVIDERS: ATTEND Physician Assistant Medical
DX: Z00.00 Encounter for general adult medical examination without abnormal findings (principal); R82.90 Unspecified abnormal findings in urine; R31.9 Hematuria, unspecified
CPT/HCPCS: 36415; 80053; 80061; 81001; 83721; 84443; 85025; 87086

== ENCOUNTER 2024-03-20 09:38 | Emergency (ER) | payer MEDICAID ==
--- NOTE | 2024-03-20 10:34 | ED Physician Documentation ---
PD HPI URI - Stated complaint Stated Complaint: SOA,CONGESTION,WHEEZING - Chief complaint Chief Complaint: Resp - History obtained from History obtained from: Patient - History of Present Illness Timing - onset: How many days ago (3) Timing duration: Days (3) Timing details: Gradual onset, Still present (has worsened steadily and having difficulty with activity and lying flat. No edema. Feels wheezing and tight.) Associated symptoms: Fever, Productive cough, Dyspnea. No: Chest pain, NVD Contributing factors: No: Sick contact Review of Systems Constitutional: reports: Chills, Myalgias Nose: reports: Congestion Cardiac: denies: Chest pain / pressure Respiratory: reports: Dyspnea, Cough, Wheezing GI: reports: Nausea. denies: Vomiting, Diarrhea PD PAST MEDICAL HISTORY - Past Medical History Past Medical History: Yes Cardiovascular: Pulmonary embolism Respiratory: Asthma, COPD Neuro: None Endocrine/Autoimmune: None GI: Other [employer]: None : Other HEENT: None Psych: Anxiety, Panic attacks Musculoskeletal: Osteoarthritis, Chronic back pain, Other Derm: Eczema Other Past Medical History: IBS. DDD - Past Surgical History Past Surgical History: Yes Ortho: Knee replacement /[employer]: Other HEENT: Tonsil/Adenoidectomy - Present Medications Home Medications: Ambulatory Orders Medication Instructions Recorded Confirmed Albuterol [Proventil Hfa] 2 puffs INH BID 06/07/13 04/02/21 Furosemide [Lasix] 20 mg PO DAILY #7 tablet 06/25/19 04/02/21 Apixaban [Eliquis] 5 mg PO BID 04/02/21 04/02/21 Lidocaine Patch 5% [Lidoderm Patch] 1 patch TOP DAILY PRN 04/02/21 04/02/21 Albuterol 2.5 mg INH Q4H PRN #30 neb 09/14/21 Nebulizer Accessories [Proneb 1 each QID #1 each 09/14/21 Ultra Filter Set] Nebulizer Accessories [Wing Tip 1 each QID #1 each 09/14/21 Tubing] predniSONE [Deltasone] 40 mg PO DAILY 5 Days #10 tablet 09/14/21 cephALEXin [Keflex] 500 mg PO Q6H #28 cap 06/05/22 Colchicine [Colcrys] 0.6 mg PO DAILY #7 tablet 06/12/22 cephALEXin [Keflex] 500 mg PO Q6H #28 cap 06/12/22 Albuterol Sulf [Ventolin Hfa 2 - 3 puffs INH Q4HR PRN #1 each 03/20/24 Inhaler] Beclomethasone 40 Mcg [Qvar 40] 1 puffs INH BID 30 Days #1 each 03/20/24 Benzonatate [Tessalon] 100 mg PO TID PRN #20 cap 03/20/24 Ipratropium [Atrovent] 2 puffs INH QID #12.9 gm 03/20/24 predniSONE [Deltasone] 40 mg PO DAILY 5 Days #10 tablet 03/20/24 - Allergies Allergies/Adverse Reactions: Allergies Allergy/AdvReac Type Severity Reaction Status Date / Time diphenhydramine HCl * Allergy Intermediate Pain Verified 03/20/24 09:48 [From Benadryl] bee venom protein (honey bee) Allergy Unknown Verified 03/20/24 09:48 ciprofloxacin [From Cipro] Allergy Rash Verified 03/20/24 09:48 clindamycin Allergy Unknown Verified 03/20/24 09:48 hydrocodone [From Vicodin] Allergy Unknown Verified 03/20/24 09:48 metronidazole Allergy Unknown Verified 03/20/24 09:48 nabumetone Allergy Rash Verified 03/20/24 09:48 Penicillins Allergy seizure Verified 03/20/24 09:48 prednisone Allergy Unknown Verified 03/20/24 09:48 Sulfa (Sulfonamide Allergy severe Verified 03/20/24 09:48 Antibiotics) disrrhea tramadol HCl * [From Ultram] Allergy unknown Verified 03/20/24 09:48 dexamethasone AdvReac Severe Edema Verified 03/20/24 09:48 acetaminophen [From Percocet] AdvReac Intermediate Nausea Verified 03/20/24 09:48 oxycodone HCl * AdvReac Intermediate Nausea Verified 03/20/24 09:48 [From Percocet] amitriptyline AdvReac fatigue Verified 03/20/24 09:48 erythromycin base AdvReac severe Verified 03/20/24 09:48 body pain esomeprazole [From Nexium] AdvReac Headache Verified 03/20/24 09:48 fluticasone propionate * AdvReac Nausea Verified 03/20/24 09:48 [From Flonase] Most antibiotics Allergy Intermediate varies Uncoded 06/12/22 22:09 cillins Allergy Hives Uncoded 06/12/22 22:09 Gabepentin AdvReac Dizziness Uncoded 06/12/22 22:09 - Social History Does the pt smoke?: Yes Smoking Status: Current every day smoker Does the pt drink ETOH?: No Does the pt have substance abuse?: No - Immunizations Immunizations are current?: Yes - POLST Patient has POLST: No PD ED PE NORMAL - Vitals Vital signs reviewed: Yes - General General: Alert and oriented X 3, Well developed/nourished, Other (able to talk sentences but has some abd excursions with breathing and intermittent cough that is harsh sounding. ) Results - Vitals Vitals: Oxygen O2 Source Room air - Labs Labs: Laboratory Tests 03/20/24 10:00 Nasal Adenovirus (PCR) NOT DETECTED Nasal B. parapertussis DNA (PCR) NOT DETECTED Nasal Coronavir 229E PCR NOT DETECTED Nasal Coronavir HKU1 PCR NOT DETECTED Nasal Coronavir NL63 PCR NOT DETECTED Nasal Coronavir OC43 PCR NOT DETECTED Nasal Enterovir/Rhinovir PCR DETECTED A Nasal Influenza B PCR NOT DETECTED Nasal Influenza A PCR NOT DETECTED Nasal Parainfluen 1 PCR NOT DETECTED Nasal Parainfluen 2 PCR NOT DETECTED Nasal Parainfluen 3 PCR NOT DETECTED Nasal Parainfluen 4 PCR NOT DETECTED Nasal RSV (PCR) NOT DETECTED Nasal B.pertussis DNA PCR NOT DETECTED Nasal C.pneumoniae (PCR) NOT DETECTED Lemuel Human Metapneumo PCR NOT DETECTED Nasal M.pneumoniae (PCR) NOT DETECTED Nasal SARS-CoV-2 (PCR) NOT DETECTED - Rads (name of study) chest xray Relevant Findings:: Prelim report reviewed (interstitial pattern that could be c/w pneumonia, pissbly viral. ), EMP independent interpretation of test PD Medical Decision Making - ED course Complexity details: reviewed results (chest xray with mild intestitial pattern c/w infiltrate, likely/presumed viral given the positive rhinovirus test and symptoms just for few days. ), re-evaluated patient (improved with initial meds and neb treatment here. Sats adequte on RA and no work of breathing. ), considered differential, d/w patient Departure - Departure Disposition: 01 Home, Self Care Clinical Impression: Acute bronchitis due to Rhinovirus, Dyspnea, Exacerbation of asthma Condition: Stable Record reviewed to determine appropriate education?: Yes Instructions: ED Upper Resp Infec No Abx Tx Follow-Up: Elaine Leung PA-C [Primary Care Provider] - Prescriptions: Albuterol Sulf [Ventolin Hfa Inhaler] 2 - 3 puffs INH Q4HR PRN #1 each PRN Reason: Shortness Of Air/Wheezing Ipratropium [Atrovent] 2 puffs INH QID #12.9 gm predniSONE [Deltasone] 40 mg PO DAILY 5 Days #10 tablet Beclomethasone 40 Mcg [Qvar 40] 1 puffs INH BID 30 Days #1 each Benzonatate [Tessalon] 100 mg PO TID PRN #20 cap PRN Reason: Cough Comments: Your chest x-ray does not show any pneumonia. Your respiratory viral panel is positive for rhinovirus which is a respiratory virus that tends to cause a fair amount of bronchial irritation almost like a railroad engineer version of RSV. This will exacerbate your asthma of course. It will cause the symptoms even without asthma. Will try combination of the albuterol inhaler 2 to 3 puffs 4 times daily regula rly. We could add a second inhaler ipratropium to see if it helps in combination, also 4 times daily for the next week or 2 or 3. Decadron steroid daily for the next 6 days to help with bronchial inflammation. At this point I would not see a role for antibiotics based on an virus shown to be causing it for now. Benzonatate if needed for cough. Stay well-hydrated otherwise. Given an expectation of having some cough and wheezing with the virus for likely 3 to 4 weeks even after the acute infection is better, it would make sense to have some inhaled steroid such as Qvar for the next month. I sent a prescription to your preferred pharmacy. Follow-up with your primary care if not improving well over the next few days return if needed. Forms: PCP List Discharge Date/Time: 03/20/24 12:46
--- NOTE | 2024-03-20 10:48 | XRAY Report ---
PROCEDURE: Chest 2V INDICATIONS: cough/SOA TECHNIQUE: 2 views of the chest were acquired. COMPARISON: Chest radiograph 02/15/2022 FINDINGS: Surgical changes and devices: None. Lungs and pleura: No pleural effusions or pneumothorax. Mild bilateral interstitial prominence. No f ocal consolidation. Mediastinum: Mediastinal contours appear normal. Heart size is normal. Bones and chest wall: No suspicious bony lesions. Overlying soft tissues appear unremarkable. IMPRESSION: Mild interstitial prominence is suspicious for a viral or atypical pneumonia. No acute consolidation. Reviewed by: Bob Jackson MD on 03/20/2024 10:47 AM PDT Approved by: Bob Jackson MD on 03/20/2024 10:47 AM PDT Station ID: [id number]
[2024-03-20 10:56] LABS: B. PARAPERTUSSIS- RESP PCR PAN NOT DETECTED; B. PERTUSSIS- RESP PCR PANEL NOT DETECTED; C. PNEUMONIAE- RESP PCR PANEL NOT DETECTED; CORONAVIRUS 229E-RESP PCR NOT DETECTED; CORONAVIRUS HKU1-RESP PCR NOT DETECTED; CORONAVIRUS NL63-RESP PCR NOT DETECTED; CORONAVIRUS OC43-RESP PCR NOT DETECTED; HUMAN METAPNEUMOVIRUS NOT DETECTED; INFLUENZA A- RESP PCR PANEL NOT DETECTED; INFLUENZA B - RESP PCR PANEL NOT DETECTED; M. PNEUMONIAE- RESP PCR PANEL NOT DETECTED; PARAINFLUENZA VIRUS 1 NOT DETECTED; PARAINFLUENZA VIRUS 2 NOT DETECTED; PARAINFLUENZA VIRUS 3 NOT DETECTED; PARAINFLUENZA VIRUS 4 NOT DETECTED; RHINOVIRUS/ENTEROVIRUS DETECTED; RSV- RESP PCR PANEL NOT DETECTED; SARS-CoV-2 -RESP PCR PANEL NOT DETECTED
[2024-03-20] MEDS: BENZONATATE 100 MG CAPSULE PO STA (11:30)
[2024-03-20] MEDS: IPRATROPIUM/ALBUTEROL 3 ML NEB INH STA (11:30)
[2024-03-20] MEDS: dexAMETHasone 4 MG TABLET PO STA (12:21)
[2024-03-20 12:45] VITALS: BP 130/86; O2SAT 99
== END 2024-03-20 12:46 | disposition home or self-care (01) ==
LOC: ED 09:38
DX: J20.6 Acute bronchitis due to rhinovirus (principal); J45.901 Unspecified asthma with (acute) exacerbation; J44.0 Chronic obstructive pulmonary disease with (acute) lower respiratory infection; Z20.818 Contact with and (suspected) exposure to other bacterial communicable diseases; Z20.822 Contact with and (suspected) exposure to COVID-19; Z20.828 Contact with and (suspected) exposure to other viral communicable diseases
CPT/HCPCS: 71046; 87633; 94640; 94664; 99283; 99284; A9270